=== PATIENT | male | born 1940 | race Caucasian/White ===

== ENCOUNTER 2017-04-29 15:21 | Observation (INO) | payer MEDICARE, BC ==
[2017-04-29] MEDS ORDERED: hydrALAZINE IV* 20 MG/ML VIAL IV ONE (16:12)
--- NOTE | 2017-04-29 16:47 | RAD ---
Indication: Hypertension, CHF. Single frontal view of the chest performed at 1621 hours was reviewed. Comparison is made with previous exam dated February 03, 2014. No mediastinal shift is noted. Patient is status post tracer thoracotomy. Lung ramirez demonstrate no pleural fluid, pneumonia or pneumothorax. IMPRESSION: POSTOPERATIVE CHANGES WITH NO EVIDENCE OF ACTIVE CARDIOPULMONARY DISEASE.
[2017-04-29 17:10] LABS: Hematocrit 45 % (42-52); Hemoglobin 15.1 g/dl (14.0-18.0); Mean Corpuscular HGB Conc 33 g/dl (31-36); Mean Corpuscular Hemoglobin 31 pg (27-31); Mean Corpuscular Volume 93 fL (80-94); Mean Platelet Volume 8 um3 (7.4-10.4); Red Blood Count 4.86 10^6/ul (4.0-5.4); Red Cell Distribution Width 14 % (10.5-15); White Blood Count 6.4 10^3/ul (3.5-10.8)
[2017-04-29 17:29] LABS: Albumin 3.5 g/dL (3.2-5.2); BUN/Creatinine Ratio 19.5 (8-20); Calcium 8.8 mg/dL (8.6-10.3); EGFR African American 67.6 (>60); EGFR Non-African American 52.6 (>60); Globulin 3.3 g/dL (2-4); Potassium 3.7 mmol/L (3.5-5.0); Total Bilirubin 0.7 mg/dL (0.2-1.0); Total Protein 6.8 g/dL (6.4-8.9)
[2017-04-29 18:05] LABS: TSH (Thyroid Stimulating Horm) 0.65 mcIU/mL (0.34-5.60)
[2017-04-29] MEDS ORDERED: hydrALAZINE IV* 20 MG/ML VIAL IV SLOW PU PRN (18:18)
[2017-04-29] MEDS: amLODIPine TAB* 5 MG PO SCH (19:27)
--- NOTE | 2017-04-29 19:32 | ED ---
Jose Enrique Kay Alfonso, scribed for Jesus Abreu MD on 04/29/17 at 1600 . Hypertension - HPI Summary HPI Summary: This patient is a 76 year old M BIBA to [facility] accompanied by with a chief complaint of high blood pressure noticed last night. He reports today when at his PCP his BP was 180/110. The patient rates the pain 0/10 in severity. 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 Symptoms alleviated by nothing. Patient denies CP, headache, and urinary symptoms. He reports missing doses of BID medication 3 nights ago. PMHx includes HTN, HLD, and CVA. - History of Current Complaint Chief Complaint: EDHypertension Stated Complaint: HIGH BLOOD PRESSURE Time Seen by Provider: 04/29/17 15:51 Hx Obtained From: Patient Onset/Duration: Started Days Ago - noticed last night, Still Present Timing: Constant, Lasting Days - noticed last night Reported Blood Pressure Prior To Arrival: 180/110 Aggravating Factor(s): Other: - Stress Alleviating Factor(s): Nothing Associated Signs & Symptoms: Negative Related Hx: Rx Non-Compliance - missing doses of BID medication 3 nights ago. - Allergies/Home Medications Allergies/Adverse Reactions: Allergies Allergy/AdvReac Type Severity Reaction Status Date / Time Enalapril [From Vasotec] Allergy Intermediate Swelling Verified 05/07/16 11:03 Of Face,Lips,& Throat Erythromycin Allergy Intermediate Nausea And Verified 05/07/16 11:03 Vomiting Home Medications: Home Medications Amoxicillin PO (*) [Amoxicillin 500 MG CAP*] 2,000 mg PO ONCE 04/29/17 [History Confirmed 04/29/17] Carvedilol TAB* [Coreg TAB*] 25 mg PO BID 04/29/17 [History Confirmed 04/29/17] [place]-3 Fatty Acids (Nf) [Fish Oil (NF)] 2,000 mg PO BID 04/29/17 [History Confirmed 04/29/17] PMH/Surg Hx/FS Hx/Imm Hx Endocrine/Hematology History: Reports: Hx Anemia Denies: Hx Anticoagulant Therapy, Hx Blood Disorders, Hx Blood Transfusions, Hx Bone Marrow Disease, Hx Diabetes, Hx Systemic Lupus Erythematosus, Hx Sickle Cell Disease, Hx Thyroid Disease, Hx Unexplained Bleeding, Other Endocrine/ Hematological Disorders Cardiovascular History: Reports: Hx Hypercholesterolemia, Hx Hypertension, Hx Pacemaker/ICD - pacemaker placed 01/2014, Hx Valvular Heart Disease - mitral valve replacement 01/2014 Denies: Hx Aneurysm, Hx Angina, Hx Angioplasty, Hx Auto Implanted Cardiovert Defib, Hx Cardiac Arrest, Hx Cardiomegaly, Hx Congenital Heart Disease, Hx Congestive Heart Failure, Hx Coronary Artery Disease, Hx Deep Vein Thrombosis, Hx Embolism, Hx Hypotension, Hx Peripheral Vascular Disease, Hx Rheumatic Fever , Hx Syncope, Other Cardiovascular Problems/Disorders Respiratory History: Reports: Other Respiratory Problems/Disorders - smoker 30 years Denies: Hx Asthma, Hx Chronic Bronchitis, Hx Chronic Obstructive Pulmonary Disease (COPD), Hx Cystic Fibrosis, Hx Lung Cancer, Hx Pleural Effusion, Hx Pneumonia, Hx Pulmonary Edema, Hx Pulmonary Embolism, Hx Seasonal Allergies, Hx Sleep Apnea GI History: Denies: Hx Cirrhosis, Hx Crohn's Disease, Hx Diverticulosis, Hx Gall Bladder Disease, Hx Gastroesophageal Reflux Disease, Hx Gastrointestinal Bleed, Hx Hiatal Hernia, Hx Irritable Bowel, Hx Jaundice, Hx Obstructive Bowel, Hx Ileostomy, Hx Pyloric Stenosis, Hx Ulcer, Other GI Disorders History: Reports: Hx Acute Renal Failure Denies: Hx Benign Prostatic Hyperplasia, Hx Chronic Renal Failure, Hx Dialysis, Hx Kidney Infection, Hx Kidney Stones, Other Problems/Disorders Musculoskeletal History: Reports: Other Musculoskeletal History - right wrist fx ~1999, broken ribs-no date Sensory History: Reports: Hx Contacts or Glasses Denies: Hx Cataracts, Hx Eye Injury, Hx Eye Prosthesis, Hx Glaucoma, Hx Legally Blind, Hx Macular Degeneration, Hx Vision Problem, Hx Deafness, Hx Hearing Aid, Hx Hearing Problem, Other Sensory Impairments Opthamlomology History: Reports: Hx Contacts or Glasses Denies: Hx Cataracts, Hx Eye Injury, Hx Eye Prosthesis, Hx Glaucoma, Hx Legally Blind, Hx Macular Degeneration, Hx Vision Problem, Other Sensory Impairments Neurological History: Reports: Hx CVA Denies: Hx Dementia, Hx Developmental Delay, Hx Headaches, Hx Migraine, Hx Nerve Disease, Hx Seizures, Hx Spinal Cord Injury, Hx Transient Ischemic Attacks (TIA), Other Neuro Impairments/Disorders Psychiatric History: Denies: Hx Anxiety, Hx Attention Deficit Hyperactivity Disorder, Hx Eating Disorder, Hx Depression, Hx Panic Disorder, Hx Post Traumatic Stress Disorder, Hx Inpatient Treatment, Hx Community Mental Health Tx, Hx Schizophrenia, Hx Bipolar Disorder, Hx Suicide Attempt, Hx of Violent Episodes Against Others, Hx Substance Abuse, Other Psychiatric Issues/Disorders - Cancer History Hx Chemotherapy: No Hx Radiation Therapy: No Hx Palliative Cancer Treatment: No - Surgical History Surgery Procedure, Year, and Place: trigger finger release . heart valve replacement 01/2014. pacer insertion 01/2014 [facility]x Anesthesia Reactions: No Infectious Disease History: Yes Infectious Disease History: Denies: Hx Clostridium Difficile, Hx Hepatitis, Hx Human Immunodeficiency Virus (HIV), Hx of Known/Suspected MRSA, Hx Tuberculosis, Hx Known/Suspected VRE , Hx Known/Suspected VRSA, History Other Infectious Disease, Traveled Outside the [place] in Last 30 Days - Family History Known Family History: Negative: Cardiac Disease - Social History Alcohol Use: Occasionally Alcohol Amount: 2 drinks per night Substance Use Type: Reports: None Smoking Status (MU): Former Smoker Type: Cigarettes Length of Time of Smoking/Using Tobacco: 30 years Have You Smoked in the Last Year: No Review of Systems Positive: Other - High blood pressure. Negative: Chest Pain Positive: no symptoms reported Negative: Headache All Other Systems Reviewed And Are Negative: Yes Physical Exam - Summary Physical Exam Summary: The patient is well-nourished in no acute distress and in no acute pain. The skin is warm and dry and skin color reflects adequate perfusion. HEENT: The head is normocephalic and atraumatic. The pupils are equal and reactive. The conjunctivae are clear and without drainage.~Nares are patent and without drainage.~Mouth reveals moist mucous membranes and the throat is without erythema and exudate. The external ears are intact. The ear canals are patent and without drainage. The tympanic membranes are intact. Neck is supple with full range of motion and non-tender. There are no carotid bruits. There is no neck vein distension. Respiratory: Chest is non-tender. Lungs are clear to auscultation and breath sounds are symmetrical and equal. Cardiovascular: Heart is regular rate and rhythm. There is no murmur or rub auscultated. Pulses are symmetrical and equal. Abdomen: The abdomen is soft and non-tender. There are normal bowel sounds heard in all four quadrants and there is no organomegaly palpated. Musculoskeletal: There is no back pain noted.~Extremities are non-tender with full range of motion. There is good capillary refill. There is pitting edema at bilateral LE which is greater on the right Neurological: Patient is alert and oriented to person, place and time. The patient has symmetrical motor strength in all four extremities. Cranial nerves are grossly intact. Deep tendon reflexes are symmetrical and equal in all four extremities. Psychiatric: The patient exhibits anxiety. Triage Information Reviewed: Yes Vital Signs On Initial Exam: Initial Vitals BP 144/78 04/29/17 15:31 Vital Signs Reviewed: Yes - Yelena Coma Scale Coma Scale Total: 15 Diagnostics - Vital Signs Vital Signs Temp Pulse Resp BP Pulse Ox 04/29/17 15:33 99.2 F 78 16 144/78 97 04/29/17 15:32 78 21 97 04/29/17 15:31 144/78 - Laboratory Lab Results: Lab Results 04/29/17 04/29/17 04/29/17 Range/Units 16:59 16:59 16:59 WBC 6.4 (3.5-10.8) 10^3/ul RBC 4.86 (4.0-5.4) 10^6/ul Hgb 15.1 (14.0-18.0) g/dl Hct 45 (42-52) % MCV 93 (80-94) fL MCH 31 (27-31) pg MCHC 33 (31-36) g/dl RDW 14 (10.5-15) % Plt Count 176 (150-450) 10^3/ul MPV 8 (7.4-10.4) um3 Neut % (Auto) 70.7 (38-83) % Lymph % (Auto) 16.0 L (25-47) % [place] % (Auto) 11.1 H (1-9) % Eos % (Auto) 1.7 (0-6) % Baso % (Auto) 0.5 (0-2) % Absolute Neuts (auto) 4.5 (1.5-7.7) 10^3/ul Absolute Lymphs (auto) 1.0 (1.0-4.8) 10^3/ul Absolute Monos (auto) 0.7 (0-0.8) 10^3/ul Absolute Eos (auto) 0.1 (0-0.6) 10^3/ul Absolute Basos (auto) 0 (0-0.2) 10^3/ul Absolute Nucleated RBC 0 10^3/ul Nucleated RBC % 0.1 INR (Anticoag Therapy) (0.89-1.11) Sodium 136 (133-145) mmol/L Potassium 3.7 (3.5-5.0) mmol/L Chloride 100 L (101-111) mmol/L Carbon Dioxide 25 (22-32) mmol/L Anion Gap 11 (2-11) mmol/L BUN 26 H (6-24) mg/dL Creatinine 1.33 H (0.67-1.17) mg/dL Est GFR ( Amer) 67.6 (>60) Est GFR (Non-Af Amer) 52.6 (>60) BUN/Creatinine Ratio 19.5 (8-20) Glucose 106 H (70-100) mg/dL Lactic Acid (0.5-2.0) mmol/L Calcium 8.8 (8.6-10.3) mg/dL Total Bilirubin 0.70 (0.2-1.0) mg/dL AST 26 (13-39) U/L ALT 22 (7-52) U/L Alkaline Phosphatase 59 (34-104) U/L Troponin I 0.00 (<0.04) ng/mL B-Natriuretic Peptide 91 ( - 100) pg/mL Total Protein 6.8 (6.4-8.9) g/dL Albumin 3.5 (3.2-5.2) g/dL Globulin 3.3 (2-4) g/dL Albumin/Globulin Ratio 1.1 (1-3) TSH 0.65 (0.34-5.60) mcIU/mL 04/29/17 04/29/17 Range/Units 16:59 16:59 WBC (3.5-10.8) 10^3/ul RBC (4.0-5.4) 10^6/ul Hgb (14.0-18.0) g/dl Hct (42-52) % MCV (80-94) fL MCH (27-31) pg MCHC (31-36) g/dl RDW (10.5-15) % Plt Count (150-450) 10^3/ul MPV (7.4-10.4) um3 Neut % (Auto) (38-83) % Lymph % (Auto) (25-47) % [place] % (Auto) (1-9) % Eos % (Auto) (0-6) % Baso % (Auto) (0-2) % Absolute Neuts (auto) (1.5-7.7) 10^3/ul Absolute Lymphs (auto) (1.0-4.8) 10^3/ul Absolute Monos (auto) (0-0.8) 10^3/ul Absolute Eos (auto) (0-0.6) 10^3/ul Absolute Basos (auto) (0-0.2) 10^3/ul Absolute Nucleated RBC 10^3/ul Nucleated RBC % INR (Anticoag Therapy) 0.86 L (0.89-1.11) Sodium (133-145) mmol/L Potassium (3.5-5.0) mmol/L Chloride (101-111) mmol/L Carbon Dioxide (22-32) mmol/L Anion Gap (2-11) mmol/L BUN (6-24) mg/dL Creatinine (0.67-1.17) mg/dL Est GFR ( Amer) (>60) Est GFR (Non-Af Amer) (>60) BUN/Creatinine Ratio (8-20) Glucose (70-100) mg/dL Lactic Acid 1.6 (0.5-2.0) mmol/L Calcium (8.6-10.3) mg/dL Total Bilirubin (0.2-1.0) mg/dL AST (13-39) U/L ALT (7-52) U/L Alkaline Phosphatase (34-104) U/L Troponin I (<0.04) ng/mL B-Natriuretic Peptide ( - 100) pg/mL Total Protein (6.4-8.9) g/dL Albumin (3.2-5.2) g/dL Globulin (2-4) g/dL Albumin/Globulin Ratio (1-3) TSH (0.34-5.60) mcIU/mL Result Diagrams: 04/29/17 16:59 04/29/17 16:59 Lab Statement: Any lab studies that have been ordered have been reviewed, and results considered in the medical decision making process. - Radiology CXR Radiology Interpretation Completed By: Radiologist - POSTOPERATIVE CHANGES WITH NO EVIDENCE OF ACTIVE CARDIOPULMONARY DISEASE. ED physician has reviewed this radiology report and agrees. Hypertension Course/Dx - Course Assessment/Plan: This patient is a 76 year old M BIBA to [facility] accompanied by with a chief complaint of high blood pressure noticed last night. He reports today when at his PCP his BP was 180/110. The patient rates the pain 0/ 10 in severity. 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 Symptoms alleviated by nothing. Patient denies CP, headache, and urinary symptoms. He reports missing doses of BID medication 3 nights ago. PMHx includes HTN, HLD, and CVA. CXR reveals POSTOPERATIVE CHANGES WITH NO EVIDENCE OF ACTIVE CARDIOPULMONARY DISEASE. ED physician has reviewed this radiology report and agrees. Consulted Dr. Denny (PCP) who feels the patient should be observed. Consulted Dr. Gentile (hospitalist) at 1647 who agrees to admit. The patient is agreeable with this plan. - Diagnoses Provider Diagnoses: Uncontrolled hypertension, Renal insufficiency - Physician Notifications Discussed Care Of Patient With: Hang Denny Time Discussed With Above Provider: 16:11 Instructed by Provider To: Other - Consulted Dr. Denny (PCP) who feels the patient should be observed. Consulted Dr. Gentile (hospitalist) at 1647 who agrees to admit. Discharge - Discharge Plan Condition: Stable Disposition: ADMITTED TO [facility] The documentation as recorded by the Jose Enrique greene Alfonso accurately reflects the service I personally performed and the decisions made by me, Jesus Abreu MD.
[2017-04-29] MEDS ORDERED: Atorvastatin* 40 MG TAB PO SCH (21:00)
[2017-04-29] MEDS: Carvedilol TAB* 25 MG PO SCH (21:43)
[2017-04-29] MEDS: Heparin VIAL(*) 5000 UNITS/ML VIAL (FIVE THOUSAND) SUBCUT SCH (21:43)
--- NOTE | 2017-04-29 21:48 | HP ---
CC: Dr. Denny * [facility] MEDICINE HISTORY AND PHYSICAL: DATE OF ADMISSION: 04/29/17 PRIMARY CARE PHYSICIAN: Dr. Denny. ATTENDING PHYSICIAN: Dr. David Gentile * (dictation provided by Monika Jarvis NP). CHIEF COMPLAINT: High blood pressure. HISTORY OF PRESENT ILLNESS: Mr. Orozco is a 76-year-old male with a past medical history of mitral valve replacement with a porcine valve as well as a pacemaker due to arrhythmia after that procedure, hypertension, hyperlipidemia, and a stroke with some residual left-sided numbness in his fingers and unsteady gait, who presents to the hospital today with concern for elevated blood pressure. Mr. Orozco states he has been in his normal state of health with no acute complaints. He went to see Dr. Denny last week for a routine followup yearly appointment where it was noted that his blood pressure was 162/106. There were no changes to the patient's medications at that time. 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 He confirms that this has made him quite anxious and stressed, which is unusual for him. Over the last couple of days, the patient has been more unsteady on his feet and has been using his cane more frequently per his 's report. Today, the patient stated to his that he felt his blood pressure was likely very high as he felt "not quite right" and unsteady. The patient went to the [facility] where his is a patient where they checked his blood pressure and found it to be 180/110. The patient is currently without a primary care physician as his prior physician, Dr. Garcia, is no longer practicing in [place]. The staff at the [facility] recommended that he come to the emergency room and he was transported via EMS. The patient denies any other complaints. He has no chest pain. No shortness of breath. No cough. No nausea, vomiting, diarrhea, or abdominal pain. He has been tolerating oral intake well. In the emergency room, Mr. Orozco was confirmed to have blood pressure elevated. On arrival, it was initially 144/78, but it has been as high as 185. His labs show that his BUN and creatinine are elevated from baseline at 1.33 and 26 respectively. PAST MEDICAL HISTORY: 1. 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 2. History of pacemaker for arrhythmia noted after mitral valve replacement. 3. Hypertension. 4. Hyperlipidemia. 5. History of stroke with residual left-sided numbness in his left fingers and unsteady gait. MEDICATIONS: 1. Amoxicillin 2000 mg p.o. as needed with dental procedures. 2. Multivitamins with minerals 1 tab p.o. daily. 3. [place]-3 fatty acid 2000 mg p.o. b.i.d. 4. Aspirin 81 mg p.o. daily. 5. Atorvastatin 40 mg p.o. at bedtime. 6. Carvedilol 25 mg p.o. b.i.d. 7. Furosemide 40 mg p.o. daily. ALLERGIES: ENALAPRIL and ERYTHROMYCIN. FAMILY HISTORY: The patient's mother had from a cerebral hemorrhage. His father related to liver cirrhosis. SOCIAL HISTORY: The patient is a former smoker, he quit about 20 years ago. He drinks still drinks about 2 drinks per night. He has no history of symptoms of withdrawal per his report. No history of drug use. He lives with his , who is the healthcare proxy. REVIEW OF SYSTEMS: A 14-point review of systems was completed with Mr. Orozco, and all those not mentioned above were negative. PHYSICAL EXAMINATION GENERAL: Mr. Orozco is lying in the bed, in no acute distress. His is at the bedside. VITAL SIGNS: On arrival, blood pressure 144/78, temperature 99.2, heart rate 78 , respiratory rate 16, O2 saturation 97% on room air. LUNGS: Clear to auscultation bilaterally with no accessory muscle use and good aeration. HEART: S1, S2. No murmur, rub, or gallop and regular. ABDOMEN: Soft, nontender with bowel sounds positive x4. EXTREMITIES: No cyanosis or edema. NEURO: He is alert. He is oriented x3. He moves all extremities equally. There is no facial asymmetry or focal weakness. Extraocular movements are intact. SKIN: Intact. DIAGNOSTIC STUDIES/LAB DATA: Sodium 136, potassium 3.7, chloride 100, serum bicarbonate 25, BUN 26, creatinine 1.33, glucose 106, lactic acid 1.6. TSH 0.65. WBC 6.4, hemoglobin 15.1, hematocrit 45, platelet count 176. INR 0.86. Chest x-ray shows no acute intrathoracic process. EKG is pending. ASSESSMENT AND PLAN: Mr. Orozco is a 76-year-old male with a past medical history of porcine mitral valve replacement, pacemaker, hypertension, hyperlipidemia and ischemic cerebrovascular accident, who presents to the hospital today with concern for hypertensive urgency. Our plans are for observation in the hospital for the followin. Hypertension: The patient reports that he was feeling unwell earlier today and describes it as "feeling not quite right." The patient's blood pressure has been better controlled in the emergency room. I questioned whether or not his high blood pressure is related to the level of stress he is under, which he and his make note. Regardless, his blood pressure is quite high and we will treat with amlodipine 5 mg added on to his carvedilol. Unfortunately, his BUN and creatinine are elevated today and I will be holding furosemide morning dose until that can be reassessed tomorrow. He will also have hydralazine p.r.n. 2. Hyperlipidemia: Continue atorvastatin. 3. DVT prophylaxis with heparin subcu. 4. Disposition to the telemetry floor. 5. Code status is full code. TIME SPENT: Approximately 60 minutes were spent on the admission of this patient, more than half the time was spent with the patient at bedside, reviewing the events leading up to this hospitalization, performing the physical examination, and reviewing the plan of care. MONIKA JARVIS NP [id number]/CPS #: [id number] [place]
[2017-04-30 01:25] LABS: Urine Bacteria Absent (Absent); Urine Bilirubin Negative (Negative); Urine Glucose Negative (Negative); Urine Nitrite Negative (Negative)
[2017-04-30] MEDS: Heparin VIAL(*) 5000 UNITS/ML VIAL (FIVE THOUSAND) SUBCUT SCH ×2 (05:52→14:03)
[2017-04-30 05:55] LABS: Calcium 8.3 mg/dL (8.6-10.3); EGFR African American 74.7 (>60); EGFR Non-African American 58.1 (>60); Potassium 3.1 mmol/L (3.5-5.0)
[2017-04-30] MEDS: Potassium Chlor TAB* 20 MEQ TAB.ER PO SCH ×2 (08:10→12:12)
[2017-04-30] MEDS: Carvedilol TAB* 25 MG PO SCH (08:11)
[2017-04-30] MEDS: amLODIPine TAB* 5 MG PO SCH (08:11)
[2017-04-30] MEDS ORDERED: Furosemide TAB* 20 MG PO SCH (09:00)
[2017-04-30] MEDS ORDERED: Aspirin EC Low Dose* 81 MG TAB.EC PO SCH (09:00)
--- NOTE | 2017-04-30 09:38 | PN ---
Subjective Date of Service: 04/30/17 Interval History: Patient seen and examined at bedside. Pt states that he is feeling well this morning. Denies fever, chills, shortness of breath, chest discomfort, N/V/D. Pt states that he takes his blood pressure medications as directed. Tele: Sinus rhythm, rate 70-80's. Family History: Unchanged from Admission Social History: Unchanged from Admission Past Medical History: Unchanged from Admission Objective Active Medications: Amlodipine Besylate (Norvasc Tab*) 5 mg PO DAILY [facility] Aspirin (Aspirin Ec Low Dose*) 81 mg PO DAILY [facility] Atorvastatin Calcium (Lipitor*) 40 mg PO BEDTIME [facility] Carvedilol (Coreg Tab*) 25 mg PO BID [facility] Heparin Sodium (Porcine) (Heparin Vial(*)) 5,000 units SUBCUT Q8HR [facility] Hydralazine HCl (Apresoline Iv*) 5 mg IV SLOW PU Q6H PRN Reason: SBP > 185 Potassium Chloride (Klor Con Er Tab*) 40 meq PO Q4H [facility] Stop: 04/30/17 12:01 Vital Signs 04/29/17 04/29/17 04/29/17 18:00 18:29 19:30 Temperature 98.3 F 98.6 F Pulse Rate 86 88 91 Respiratory 15 20 16 Rate Blood Pressure 185/89 170/87 173/85 (mmHg) O2 Sat by Pulse 97 97 98 Oximetry 04/29/17 04/30/17 04/30/17 23:24 03:50 07:15 Temperature 98.3 F 98.8 F 97.7 F Pulse Rate 83 78 76 Respiratory 20 16 16 Rate Blood Pressure 146/74 147/75 156/78 (mmHg) O2 Sat by Pulse 96 98 98 Oximetry Oxygen Devices in Use Now: None Appearance: NAD, laying in bed Eyes: PERRLA Ears/Nose/Mouth/Throat: Mucous Membranes Moist Respiratory: Symmetrical Chest Expansion and Respiratory Effort, Clear to Auscultation Cardiovascular: NL Sounds; No Murmurs; No JVD, RRR Abdominal: NL Sounds; No Tenderness; No Distention Extremities: No Edema Skin: No Rash or Ulcers Neurological: Alert and Oriented x 3, NL Muscle Strength and Tone Lines/Tubes/Other Access: Clean, Dry and Intact Peripheral IV - site benign Nutrition: Taking PO's Result Diagrams: 04/29/17 16:59 04/30/17 04:45 Additional Lab and Data: Assess/Plan/Problems-Billing Assessment: Ms. Orozco is a 76 yo male with PMH significant for MV insufficiency, s/p AVR, pacemaker, HLD, CVA, and HTN who presented to the emergency room for elevated blood pressure and was found to be hypertensive. - Patient Problems (1) Hypertensive urgency Code(s): I16.0 - HYPERTENSIVE URGENCY SNOMED Code(s): 587354326 Comment: - SBP 140-150's - Continue to hold furosemide - Continue amlodipine and Carvedilol (2) VINAY (acute kidney injury) Code(s): N17.9 - ACUTE KIDNEY FAILURE, UNSPECIFIED SNOMED Code(s): 13796411 Comment: - Baseline creatinine appears to be around 0.9-1.0 - Creatinine improved this morning - Continue to hold furosemide (3) HLD (hyperlipidemia) Code(s): E78.5 - HYPERLIPIDEMIA, UNSPECIFIED SNOMED Code(s): 40567281 Comment: - Continue atorvastatin (4) DVT prophylaxis Code(s): PSF0740 - SNOMED Code(s): 317514796 Comment: - Continue SQ Heparin (5) Full code status Code(s): Z78.9 - OTHER SPECIFIED HEALTH STATUS SNOMED Code(s): 521377066 Status and Disposition: OBV. Discharge to home when medically stable, possibly later today.
[2017-04-30 11:45] VITALS: BP 133/78
--- NOTE | 2017-05-01 07:04 | DS ---
CC: Dr. Joe Proctor; Dr. Denny * DISCHARGE SUMMARY: DATE OF ADMISSION: 04/29/17 DATE OF DISCHARGE: 04/30/17 ATTENDING PHYSICIAN: Dr. Fabrizio Sam * (dictated by Bonnie Chatterjee NP). PRIMARY CARE PROVIDER: Dr. Joe Proctor. PRIMARY DIAGNOSES: 1. Hypertensive urgency. 2. Hypokalemia. 3. Acute kidney injury. SECONDARY DIAGNOSES: 1. Mitral valve insufficiency. 2. Status post aortic valve replacement. 3. Hypertension. 4. Hyperlipidemia. 5. History of cerebrovascular accident with residual left-sided numbness, status post pacemaker placement. STUDIES WHILE IN THE HOSPITAL: Chest x-ray from 04/29/17. Radiologist's impression: Postoperative changes with no evidence of acute cardiopulmonary disease. DISCHARGE MEDICATIONS: New home medications: Amlodipine 5 mg oral daily. Continued home medications: 1. Fish oil 2000 mg oral twice daily. 2. Multivitamin 1 tablet oral daily. 3. Carvedilol 25 mg oral twice daily. 4. Atorvastatin 40 mg oral daily at bedtime. 5. Aspirin 81 mg oral daily. 6. Amoxicillin 2000 mg oral once prior to dental procedures. Medications to discuss with primary care provider: Furosemide. HISTORY OF PRESENT ILLNESS: Mr. Orozco is a 76-year-old male with past medical history significant for mitral valve replacement with a porcine valve, pacemaker placement due to arrhythmia, hypertension, hyperlipidemia, cerebro- vascular accident with residual left-sided numbness in his fingers and an unsteady gait, who presented to the emergency room with concerns of elevated blood pressure. Mr. Orozco states he had been in his normal state of health with no acute complaints. He was seen approximately a week ago by Dr. Denny on a routine followup appointment, where it was noted his blood pressures were hypertensive with a blood pressure of 162/106. There were no changes made in the patient's medications at this time. 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 The patient over the last couple of days had noted that he was more unsteady on his feet and using his cane more frequently. The patient felt that he was not feeling quite right and unsteady. They went to the [facility] where his is the patient and had his blood pressure checked, he was found to have a blood pressure of 180/110. The patient is currently without a primary care provider due to his previous primary care provider, Dr. Garcia, no longer providing care in the [place] area. The staff at the [facility] recommended that the patient present to the emergency room for further evaluation and he was transported by EMS. While in the emergency room, the patient had an initial blood pressure of 144/ 78 and his blood pressure as high as 180 systolic. He had labs showing his BUN and creatinine were elevated from his baseline at 26 and 1.33 respectively. The hospitalists were asked to evaluate the patient for admission. While in the hospital, the patient had his furosemide held due to his acute kidney injury and he was started on amlodipine. During his stay, his blood pressures were in the 130s to 170s systolic. His blood pressures were much improved after his morning blood pressure medications today. The patient denied any complaints today. He continued to have an elevated BUN and creatinine today, although improved from yesterday. The patient was also noted to be hypokalemic, received potassium replacement. Mr. Orozco was stable for discharge to home today. Vital signs are as follows, temperature 97.7, heart rate 73, respiratory rate 20, O2 sat 99% on room air, blood pressure 133/78. DISCHARGE PLAN: Mr. Orozco will be discharged to home. Activity as tolerated. He will be on a low-sodium, low-fat diet. The patient has been set up with a new primary care provider, Dr. Joe Proctor. He has an appointment on 05/14/17, 10:15 a.m. As far his hypertension, he has been started on amlodipine 5 mg oral daily and continued on his home carvedilol. The patient 's blood pressure should be followed closely as he may need to have his amlodipine further adjusted as an outpatient. As far as the patient's acute kidney injury, we have held his furosemide for now and recommend following the patient's BUN and creatinine. He has been asked to get repeat labs on Friday , 05/03/17, or 05/05/17, to make sure that his acute kidney injury has resolved. The patient has also been encouraged to keep his appointment with Dr. Denny's office to have his pacemaker checked on , 05/08/17. The patient has been asked to return to the emergency room for any chest pain or shortness of breath. This is a summarized report of a complex medical history and hospital stay. For further details, please see the entire medical record. TIME SPENT: Time for this discharge was approximately 50 minutes, greater than half of that was spent [id number] with the patient discussing discharge plans and instructions. CONDITION ON DISCHARGE: Stable. Reviewed by FELIPE GOODMAN 05/04/17 2113 [id number]/[facility] #: [id number] SATURN[place]
== END 2017-04-30 15:15 | disposition home or self-care (01) ==
LOC: ED 15:21 → MEDTELE 17:34
PROVIDERS: ADMIT Internal Medicine; ATTEND Internal Medicine
DX: I16.0 Hypertensive urgency (principal); E87.6 Hypokalemia; Z79.899 Other long term (current) drug therapy; E78.5 Hyperlipidemia, unspecified; Z79.82 Long term (current) use of aspirin; Z95.0 Presence of cardiac pacemaker; Z95.2 Presence of prosthetic heart valve; N17.9 Acute kidney failure, unspecified; I69.354 Hemiplegia and hemiparesis following cerebral infarction affecting left non-dominant side
CPT/HCPCS: 36415; 71010; 80048; 80053; 81003; 81015; 83605; 83880; 84443; 84484; 85025; 85610; 96374; 99284; A9270-GY; G0378; J0360; J1644

== ENCOUNTER 2017-05-07 18:14 | Inpatient (IN) | payer MEDICARE, OTHER ==
[2017-05-07] MEDS ORDERED: Furosemide IV* 10 MG/ML VIAL (40 MG) IV ONE ×2 (19:06→20:34)
--- NOTE | 2017-05-07 19:49 | RAD ---
Indication: Sudden onset shortness of breath. Comparison: April 29, 2017 Technique: Upright AP 1900 hours Report: Median sternotomy wires. RIGHT atrial and RIGHT ventricular level pacemaker leads are unchanged. Upper normal heart size. Prominent ill-defined central pulmonary vasculature and diffuse prominence of the interstitial markings with thickened peripheral intralobular septa. Grossly clear pleural spaces. Negative for pneumothorax. IMPRESSION: Alveolar and interstitial pulmonary edema.
[2017-05-07 19:50] LABS: C Reactive Protein 13.99 mg/L (< 5.00)
[2017-05-07] MEDS ORDERED: Nitroglycerin 0.4 MG/HR PATCH* (10 MG) TRANSDERM ONE (19:57)
[2017-05-07 19:59] LABS: Hematocrit 51 % (42-52); Hemoglobin 16.4 g/dl (14.0-18.0); Mean Corpuscular HGB Conc 33 g/dl (31-36); Mean Corpuscular Hemoglobin 31 pg (27-31); Mean Corpuscular Volume 95 fL (80-94); Mean Platelet Volume 9 um3 (7.4-10.4); Red Blood Count 5.33 10^6/ul (4.0-5.4); Red Cell Distribution Width 14 % (10.5-15); White Blood Count 12.1 10^3/ul (3.5-10.8)
[2017-05-07 20:33] LABS: Albumin 3.7 g/dL (3.2-5.2); Calcium 9.3 mg/dL (8.6-10.3); EGFR Non-African American 66.8 (>60); Globulin 3.9 g/dL (2-4); Potassium 4.6 mmol/L (3.5-5.0); Total Bilirubin 0.9 mg/dL (0.2-1.0); Total Protein 7.6 g/dL (6.4-8.9)
[2017-05-07 20:34] LABS: Troponin I 0.01 ng/mL (<0.04)
[2017-05-07] MEDS ORDERED: Acetaminophen TAB* 325 MG PO PRN (20:34)
[2017-05-07] MEDS ORDERED: Nitroglycerin 2% OINT* 1 GM PAK ONE (20:46)
[2017-05-07] MEDS: Nitroglycerin 2% OINT* 1 GM PAK TOPICAL SCH (20:47)
[2017-05-07] MEDS ORDERED: Iohexol 350* (CONTRAST) 500 ML MDV IV ONE (21:02)
--- NOTE | 2017-05-07 21:49 | RAD ---
INDICATION: Sudden onset dyspnea. Expiratory wheezing and lower lobe bronchial. Lower extremity pitting edema. Question CHF and PE. COMPARISON: Chest radiograph of the same date TECHNIQUE: Multidetector CT images were obtained from the lung apices to the upper abdomen with 78 mL Omnipaque 350 IV contrast. Pulmonary angiogram protocol. Multiplanar reformation including with maximum intensity projection. REPORT: Small bilateral dependent pleural effusions with proportional atelectasis. Prominent interstitial markings with peripheral thickened intralobular septa. Mild bilateral central mid to lower lung zone alveolar consolidation most suspicious for alveolar edema. Negative for pneumothorax. Negative for thoracic lymphadenopathy. Median sternotomy wires. Upper normal heart size. Prosthetic mitral valve. RIGHT atrial and RIGHT ventricular level pacemaker leads. Negative for pericardial effusion. Normal diameter thoracic aorta with only mild atherosclerotic plaque. Respiratory motion artifact moderately limits the CT pulmonary angiogram. Nonetheless there are no compelling filling defects within the main through the segmental and where visible the subsegmental pulmonary arteries to indicate pulmonary embolus. Images through the upper abdomen are remarkable for mild passive congestion of the liver. Negative for suspicious osseous lesions. IMPRESSION: 1. Mild alveolar and interstitial pulmonary edema with associated small pleural effusions. 2. Moderately limited CT pulmonary and limited due to motion artifact without compelling evidence for pulmonary embolism.
[2017-05-07] MEDS: Atorvastatin* 40 MG TAB PO SCH (21:50)
[2017-05-07] MEDS: Heparin VIAL(*) 5000 UNITS/ML VIAL (FIVE THOUSAND) SUBCUT SCH (21:57)
--- NOTE | 2017-05-07 22:58 | ED ---
Marty Kay Benjamin, scribed for Sanju Salgado MD on 05/07/17 at 1908 . Shortness of Breath - HPI Summary HPI Summary: 76yo male with sudden onset of dyspnea. Pt is in labored breathing and states that he never had breathing problems in the past. Pt had mitral valve replacement at 2013 and is recently been taken off Lasix. Pt is a former smoker and has hx of COPD. Pt is wheezing and presents bilateral leg swelling. - History of Current Complaint Chief Complaint: EDShortnessOfBreath Time Seen by Provider: 05/07/17 18:46 Hx Obtained From: Patient Onset/Duration: Sudden Onset, Lasting Hours, Still Present Timing: Constant Current Severity: Moderate Dyspnea At: Rest Aggrevating Factors: Nothing Alleviating Factors: Bronchodilators, EMS Tx, Oxygen Associated Signs & Symptoms: Wheezing - Allergy/Home Medications Allergies/Adverse Reactions: Allergies Allergy/AdvReac Type Severity Reaction Status Date / Time Enalapril [From Vasotec] Allergy Intermediate Swelling Verified 05/07/16 11:03 Of Face,Lips,& Throat Erythromycin Allergy Intermediate Nausea And Verified 05/07/16 11:03 Vomiting PMH/Surg Hx/FS Hx/Imm Hx Endocrine/Hematology History: Reports: Hx Anemia Denies: Hx Anticoagulant Therapy, Hx Blood Disorders, Hx Blood Transfusions, Hx Bone Marrow Disease, Hx Diabetes, Hx Systemic Lupus Erythematosus, Hx Sickle Cell Disease, Hx Thyroid Disease, Hx Unexplained Bleeding, Other Endocrine/ Hematological Disorders Cardiovascular History: Reports: Hx Hypercholesterolemia, Hx Hypertension, Hx Pacemaker/ICD - pacemaker placed 01/2014, Hx Valvular Heart Disease - mitral valve replacement 01/2014 Denies: Hx Aneurysm, Hx Angina, Hx Angioplasty, Hx Auto Implanted Cardiovert Defib, Hx Cardiac Arrest, Hx Cardiomegaly, Hx Congenital Heart Disease, Hx Congestive Heart Failure, Hx Coronary Artery Disease, Hx Deep Vein Thrombosis, Hx Embolism, Hx Hypotension, Hx Peripheral Vascular Disease, Hx Rheumatic Fever , Hx Syncope, Other Cardiovascular Problems/Disorders Respiratory History: Reports: Other Respiratory Problems/Disorders - smoker 30 years Denies: Hx Asthma, Hx Chronic Bronchitis, Hx Chronic Obstructive Pulmonary Disease (COPD), Hx Cystic Fibrosis, Hx Lung Cancer, Hx Pleural Effusion, Hx Pneumonia, Hx Pulmonary Edema, Hx Pulmonary Embolism, Hx Seasonal Allergies, Hx Sleep Apnea GI History: Denies: Hx Cirrhosis, Hx Crohn's Disease, Hx Diverticulosis, Hx Gall Bladder Disease, Hx Gastroesophageal Reflux Disease, Hx Gastrointestinal Bleed, Hx Hiatal Hernia, Hx Irritable Bowel, Hx Jaundice, Hx Obstructive Bowel, Hx Ileostomy, Hx Pyloric Stenosis, Hx Ulcer, Other GI Disorders History: Denies: Hx Acute Renal Failure, Hx Benign Prostatic Hyperplasia, Hx Chronic Renal Failure, Hx Dialysis, Hx Kidney Infection, Hx Kidney Stones, Other Problems/Disorders Musculoskeletal History: Reports: Other Musculoskeletal History - right wrist fx ~1999, broken ribs-no date Sensory History: Reports: Hx Contacts or Glasses Denies: Hx Cataracts, Hx Eye Injury, Hx Eye Prosthesis, Hx Glaucoma, Hx Legally Blind, Hx Macular Degeneration, Hx Vision Problem, Hx Deafness, Hx Hearing Aid, Hx Hearing Problem, Other Sensory Impairments Opthamlomology History: Reports: Hx Contacts or Glasses Denies: Hx Cataracts, Hx Eye Injury, Hx Eye Prosthesis, Hx Glaucoma, Hx Legally Blind, Hx Macular Degeneration, Hx Vision Problem, Other Sensory Impairments Neurological History: Reports: Hx CVA Denies: Hx Dementia, Hx Developmental Delay, Hx Headaches, Hx Migraine, Hx Nerve Disease, Hx Seizures, Hx Spinal Cord Injury, Hx Transient Ischemic Attacks (TIA), Other Neuro Impairments/Disorders Psychiatric History: Denies: Hx Anxiety, Hx Attention Deficit Hyperactivity Disorder, Hx Eating Disorder, Hx Depression, Hx Panic Disorder, Hx Post Traumatic Stress Disorder, Hx Inpatient Treatment, Hx Community Mental Health Tx, Hx Schizophrenia, Hx Bipolar Disorder, Hx Suicide Attempt, Hx of Violent Episodes Against Others, Hx Substance Abuse, Other Psychiatric Issues/Disorders - Cancer History Hx Chemotherapy: No Hx Radiation Therapy: No Hx Palliative Cancer Treatment: No - Surgical History Surgery Procedure, Year, and Place: trigger finger release . heart valve replacement 01/2014. pacer insertion 01/2014 [facility] Hx Anesthesia Reactions: No Infectious Disease History: No Infectious Disease History: Denies: Hx Clostridium Difficile, Hx Hepatitis, Hx Human Immunodeficiency Virus (HIV), Hx of Known/Suspected MRSA, Hx Tuberculosis, Hx Known/Suspected VRE , Hx Known/Suspected VRSA, History Other Infectious Disease, Traveled Outside the [place] in Last 30 Days - Family History Known Family History: Negative: Cardiac Disease - Social History Alcohol Use: Occasionally Alcohol Amount: 2 drinks per night Substance Use Type: Reports: None Smoking Status (MU): Former Smoker Type: Cigarettes Length of Time of Smoking/Using Tobacco: 30 years Have You Smoked in the Last Year: No Review of Systems Constitutional: Negative Eyes: Negative ENT: Negative Cardiovascular: Negative Positive: Shortness Of Breath Gastrointestinal: Negative Genitourinary: Negative Positive: Edema - legs Skin: Negative Neurological: Negative Psychological: Normal All Other Systems Reviewed And Are Negative: Yes Physical Exam Triage Information Reviewed: Yes Vital Signs On Initial Exam: Initial Vitals Temp Pulse Resp BP Pulse Ox 97.2 F 93 36 174/93 92 05/07/17 18:21 05/07/17 18:21 05/07/17 18:21 05/07/17 18:21 05/07/17 18:21 Vital Signs Reviewed: Yes Head/Face: Positive: Normal Head/Face Inspection Eyes: Positive: EOMI, DB ENT: Positive: Normal ENT inspection, Hearing grossly normal Neck: Positive: Supple, Nontender Respiratory/Lung Sounds: Positive: Other - poor air movement; crackles Cardiovascular: Positive: RRR, Pulses are Symmetrical in both Upper and Lower Extremities Abdomen Description: Positive: Nontender, Soft Bowel Sounds: Positive: Present Musculoskeletal: Positive: Normal, Strength/ROM Intact Neurological: Positive: Sensory/Motor Intact, Alert, Oriented to Person Place, Time Psychiatric: Positive: Affect/Mood Appropriate - Yelena Coma Scale Coma Scale Total: 15 Diagnostics - Vital Signs Vital Signs Temp Pulse Resp BP Pulse Ox 05/07/17 18:28 94 26 92 05/07/17 18:27 98.0 F 94 24 161/112 92 05/07/17 18:21 97.2 F 93 36 174/93 92 - Laboratory Lab Results: Lab Results 05/07/17 05/07/17 05/07/17 Range/Units 19:23 19:23 19:23 WBC 12.1 H (3.5-10.8) 10^3/ul RBC 5.33 (4.0-5.4) 10^6/ul Hgb 16.4 (14.0-18.0) g/dl Hct 51 (42-52) % MCV 95 H (80-94) fL MCH 31 (27-31) pg MCHC 33 (31-36) g/dl RDW 14 (10.5-15) % Plt Count 157 (150-450) 10^3/ul MPV 9 (7.4-10.4) um3 Neut % (Auto) 85.5 H (38-83) % Lymph % (Auto) 4.7 L (25-47) % [place] % (Auto) 8.4 (1-9) % Eos % (Auto) 0.9 (0-6) % Baso % (Auto) 0.5 (0-2) % Absolute Neuts (auto) 10.4 H (1.5-7.7) 10^3/ul Absolute Lymphs (auto) 0.6 L (1.0-4.8) 10^3/ul Absolute Monos (auto) 1.0 H (0-0.8) 10^3/ul Absolute Eos (auto) 0.1 (0-0.6) 10^3/ul Absolute Basos (auto) 0.1 (0-0.2) 10^3/ul Absolute Nucleated RBC 0 10^3/ul Nucleated RBC % 0 INR (Anticoag Therapy) 0.85 L (0.89-1.11) D-Dimer, Quantitative 857 H (Less Than 230) ng/mL Sodium 135 (133-145) mmol/L Potassium 4.6 (3.5-5.0) mmol/L Chloride 104 (101-111) mmol/L Carbon Dioxide 22 (22-32) mmol/L Anion Gap 9 (2-11) mmol/L BUN 27 H (6-24) mg/dL Creatinine 1.08 (0.67-1.17) mg/dL Est GFR ( Amer) 86.0 (>60) Est GFR (Non-Af Amer) 66.8 (>60) BUN/Creatinine Ratio 25.0 H (8-20) Glucose 103 H (70-100) mg/dL Lactic Acid (0.5-2.0) mmol/L Calcium 9.3 (8.6-10.3) mg/dL Total Bilirubin 0.90 (0.2-1.0) mg/dL AST 30 (13-39) U/L ALT 20 (7-52) U/L Alkaline Phosphatase 64 (34-104) U/L Troponin I 0.01 (<0.04) ng/mL C-Reactive Protein 13.99 H (< 5.00) mg/L B-Natriuretic Peptide ( - 100) pg/mL Total Protein 7.6 (6.4-8.9) g/dL Albumin 3.7 (3.2-5.2) g/dL Globulin 3.9 (2-4) g/dL Albumin/Globulin Ratio 0.9 L (1-3) 05/07/17 05/07/17 Range/Units 19:23 19:23 WBC (3.5-10.8) 10^3/ul RBC (4.0-5.4) 10^6/ul Hgb (14.0-18.0) g/dl Hct (42-52) % MCV (80-94) fL MCH (27-31) pg MCHC (31-36) g/dl RDW (10.5-15) % Plt Count (150-450) 10^3/ul MPV (7.4-10.4) um3 Neut % (Auto) (38-83) % Lymph % (Auto) (25-47) % [place] % (Auto) (1-9) % Eos % (Auto) (0-6) % Baso % (Auto) (0-2) % Absolute Neuts (auto) (1.5-7.7) 10^3/ul Absolute Lymphs (auto) (1.0-4.8) 10^3/ul Absolute Monos (auto) (0-0.8) 10^3/ul Absolute Eos (auto) (0-0.6) 10^3/ul Absolute Basos (auto) (0-0.2) 10^3/ul Absolute Nucleated RBC 10^3/ul Nucleated RBC % INR (Anticoag Therapy) (0.89-1.11) D-Dimer, Quantitative (Less Than 230) ng/mL Sodium (133-145) mmol/L Potassium (3.5-5.0) mmol/L Chloride (101-111) mmol/L Carbon Dioxide (22-32) mmol/L Anion Gap (2-11) mmol/L BUN (6-24) mg/dL Creatinine (0.67-1.17) mg/dL Est GFR ( Amer) (>60) Est GFR (Non-Af Amer) (>60) BUN/Creatinine Ratio (8-20) Glucose (70-100) mg/dL Lactic Acid 0.9 (0.5-2.0) mmol/L Calcium (8.6-10.3) mg/dL Total Bilirubin (0.2-1.0) mg/dL AST (13-39) U/L ALT (7-52) U/L Alkaline Phosphatase (34-104) U/L Troponin I (<0.04) ng/mL C-Reactive Protein (< 5.00) mg/L B-Natriuretic Peptide 564 H ( - 100) pg/mL Total Protein (6.4-8.9) g/dL Albumin (3.2-5.2) g/dL Globulin (2-4) g/dL Albumin/Globulin Ratio (1-3) Result Diagrams: 05/07/17 19:23 05/07/17 19:23 Lab Statement: Any lab studies that have been ordered have been reviewed, and results considered in the medical decision making process. - Radiology CXR Xray Interpretation: Positive (See Comments) - IMPRESSION: Alveolar and interstitial pulmonary edema. Radiology Interpretation Completed By: Radiologist - ED physician has reviewed this radiology report and agrees. - EKG 1851. Cardiac Rate: NL - 98bpm EKG Rhythm: Sinus Rhythm Course/Dx - Course Course Of Treatment: Reviewed pts medication and allergy lists. Blood pressure noted. Discussed with Alen Sanchez SPRAY I PAINTER (Hospitalist) at 1906. CXR SHOWS CHF. LASIX 40MG IV GIVEN. NTG PATCH STARTED. BIPAP STARTED. ADMITTED BY HOSPITALIST TO ICU. CTA PENDING AT ADMISSION. - Diagnoses Provider Diagnoses: Dyspnea, Hypoxia, CHF (congestive heart failure) - Critical Care Time Critical Care Time: 30-74 min Discharge - Discharge Plan Condition: Guarded Disposition: ADMITTED TO [facility] documentation as recorded by the Marty greene Benjamin accurately reflects the service I personally performed and the decisions made by me, Sanju Salgado MD.
--- NOTE | 2017-05-08 00:52 | HP ---
CC: Dr. Delgado * HISTORY AND PHYSICAL: DATE OF ADMISSION: 05/07/17 PRIMARY CARE PROVIDER: Dr. Delgado. ATTENDING PHYSICIAN WHILE IN THE HOSPITAL: Dr. Fabrizio Sam * (report dictated by Alen Sanchez NP). CHIEF COMPLAINT: Shortness of breath. HISTORY OF PRESENTING ILLNESS: Mr. Orozco is a 76-year-old male patient who has a history of mitral regurgitation, status post porcine valve replacement and he has a history of CVA and he has a history of hypertension and hyperlipidemia. He comes into the ER today, says around 5 o'clock, he had sudden onset of shortness of breath while walking to the bathroom. He says he has been off his Lasix since being discharged last week. He says he has not noticed any weight gain or worsening swelling. There has been no recent trips or travel. No unilateral leg pain. No recent surgery. He says that he has not had been having any chest pain. He says that last night he slept well. He denied having any orthopnea. He denied having any notable swelling. He said that he has not had progression of shortness of breath. There has not been any fevers. There has not been any chills or cough. It just was a sudden onset today. He came into the ED. He noticed on his wrist watch that his heart was really fast. This was also concerning to him too. PAST MEDICAL HISTORY: Significant for: 1. Mitral regurgitation. 2. Hypertension. 3. Hyperlipidemia. 4. CVA with residual left-sided weakness. PAST SURGICAL HISTORY: He has had a mitral valve replacement that is porcine with a history of pacemaker. HOME MEDICATIONS: According to the list that we were able to obtain include: 1. Amlodipine 5 mg daily. 2. [place]-3 fatty acid 1000 mg p.o. b.i.d. 3. Multivitamin 1 tablet p.o. daily. 4. Lasix, notes that we have 60 mg a day, this was recently stopped about a week. 5. He is on Coreg 25 mg p.o. b.i.d. 6. Lipitor 40 mg daily. 7. Aspirin 81 mg daily. 9. Amoxicillin 2000 mg p.o. before dental work. ALLERGIES TO MEDICATIONS: Include VASOTEC and ERYTHROMYCIN. FAMILY HISTORY: Mother had a history of intracranial hemorrhage. Father had cirrhosis. SOCIAL HISTORY: He is a former smoker. He does drink 2 drinks a night. Surrogate decision maker is his . REVIEW OF SYSTEMS: There is no documented fever. He denied having any significant weight change. There was no double vision. He denies having any ear discharge. There is no rhinorrhea. No sore throat. No thyroid enlargement. Denies having any chest pain. There was dyspnea on exertion and shortness of breath, but no orthopnea. No nocturnal dyspnea. No abdominal pain. No nausea. No vomiting. No dysuria. No frequency. No loss of consciousness. No pruritus and no skin ulcerations. Review of 14 systems completed, all others negative. PHYSICAL EXAMINATION GENERAL: At this time, Mr. Orozco is a 76-year-old male patient, appears well nourished, well-developed. He appears to be in a [id number] amount of respiratory distress. VITAL SIGNS: Blood pressure 170/97 with a pulse of 105, respirations were 30, O2 sat was 95%, temperature was 98. HEENT: Head is atraumatic and normocephalic. Eyes: EOMs are intact. Sclerae were anicteric and not pale. Throat: Oral mucosa appears to be moist. No oropharyngeal erythema. NECK: Supple. LUNGS: Diminished in the bases. He had crackles bilaterally. HEART: Sounds S1, S2. Irregularly irregular rate and rhythm. No murmurs, rubs , or gallops. ABDOMEN: Soft, flat, nontender. Bowel sounds were present. EXTREMITIES: Pulses were 2+ throughout. He had +2 pitting edema bilaterally. He had 5/5 strength. NEUROLOGICAL: He is awake, he is alert, and oriented x3. No gross focal deficits. SKIN: Intact. LABORATORY DATA/DIAGNOSTIC STUDIES: WBC 12.1, RBC of 5.33, hemoglobin of 16.4 , hematocrit 51, and platelet count of 157. His INR was 0.85. D-dimer was 857. He had a sodium of 135, potassium 4.6, chloride of 104, bicarb 22, BUN 27 , creatinine 1.08, glucose of 103, lactic 0.9, calcium 9.3, total bili 0.9. AST 30, ALT 20, alk phos 54. Troponin 0.01. BNP is 564. Albumin was 3.7. He had a chest x-ray today. Under my review, chest x-ray did show bilateral pulmonary edema. Radiology read this as alveolar interstitial pulmonary edema. He had an EKG, which showed sinus rhythm with a rate of 98, no ST elevation or T -wave inversions. It was reviewed to the previous EKG, it appears to be similar , rate is faster now. Old medical records were reviewed. His last EF was 60% to 65%. ASSESSMENT AND PLAN: Mr. Orozco is a 76-year-old male patient coming into the ER today with complaints of shortness of breath of sudden onset. On evaluation here in the ED, there was concern for congestive heart failure. He will be admitted under inpatient status for: 1. Shortness of breath. Etiology is unclear, certainly this could be a flash pulmonary edema, could be a pulmonary embolism, sudden onset, recent hospitalization. My plan is to get a CTA of the chest. I am going to put him on BiPAP, give him nitro, Lasix, and may have to give him some morphine and we will continue to follow him. 2. Presumed atrial fibrillation. In the ED, while dictating, it was noted that his heart rate has been going into 140s to 170s at times. I am going to get an EKG now. If this is atrial fibrillation, we are going to anticoagulate him. In addition of this, we will put him on diltiazem. His EF was preserved. 3. History of mitral valve regurgitation. It appears to be stable at this point. We will continue to monitor. 4. Hypertension. Continue meds as prescribed. 5. Hyperlipidemia. Continue his statin therapy. 6. History of cerebrovascular accident. Continue with secondary prevention. 7. DVT prophylaxis. I am going to give him therapeutic Lovenox. 8. Code status. He is a full code. 9. Fluids, electrolytes, and nutrition. He is n.p.o. because he is on BiPAP. TIME SPENT: Time spent on the admission was approximately 60 minutes with greater than half the time spent [id number] with the patient obtaining my history and physical, other half time was spent going over the plan of care with the patient and implementing plan of care. I did discuss the plan of care with my attending physician, Dr. Sam, he is in agreement. ALEN SANCHEZ, OLVIN [id number]/[facility] #: [id number] [place]
[2017-05-08] MEDS: Nitroglycerin 2% OINT* 1 GM PAK TOPICAL SCH ×3 (03:31→16:28)
[2017-05-08 05:48] LABS: Hematocrit 42 % (42-52); Mean Corpuscular HGB Conc 33 g/dl (31-36); Mean Corpuscular Hemoglobin 32 pg (27-31); Mean Corpuscular Volume 95 fL (80-94); Mean Platelet Volume 9 um3 (7.4-10.4); Red Blood Count 4.45 10^6/ul (4.0-5.4); Red Cell Distribution Width 15 % (10.5-15); White Blood Count 8.2 10^3/ul (3.5-10.8)
[2017-05-08] MEDS ORDERED: Nitro Patch/OINT Remove PATCH OFF SCH (06:00)
[2017-05-08 06:03] LABS: BUN/Creatinine Ratio 21.2 (8-20); Blood Urea Nitrogen 25 mg/dL (6-24); CO2 Carbon Dioxide 21 mmol/L (22-32); Calcium 8.4 mg/dL (8.6-10.3); Chloride 104 mmol/L (101-111); EGFR African American 77.6 (>60); EGFR Non-African American 60.3 (>60); Glucose 99 mg/dL (70-100); Sodium 137 mmol/L (133-145)
[2017-05-08 06:13] LABS: Anion Gap 12 mmol/L (2-11)
[2017-05-08] MEDS: Heparin VIAL(*) 5000 UNITS/ML VIAL (FIVE THOUSAND) SUBCUT SCH ×3 (07:04→21:14)
[2017-05-08] MEDS: Aspirin EC Low Dose* 81 MG TAB.EC PO SCH (08:58)
[2017-05-08] MEDS: amLODIPine TAB* 5 MG PO SCH (08:58)
--- NOTE | 2017-05-08 11:39 | ECHO ---
Amended Report Patient: RADHA AKBAR [facility] Rec#: [id number] : 1940 Date: 05/08/2017 Age: 76y Height: 180.34 cm / 71.0 in Weight: 92.08 kg / 202.9 lbs Sex: M BSA: 2.12 Room#: ICU 11 Admit Date#: 05/07/2017 Type: Inpatient Referring: Alen Sanchez NP Reading: Danie Gimenez MD Equipment Superintendent: Lolly Murphy RDCS,RDMS CC: Hang Denny MD Transthoracic Echocardiogram Indication: CHF, PE BP: 96/69 HR: 92 Rhythm: NSR Findings History: MV replacement, HTN, HLD, CVA Technical Comments: The study is technically limited due to poor acoustic windows. Completed 1045 Left Ventricle: The left ventricular chamber size is normal. Mild concentric left ventricular hypertrophy is observed. The left ventricle appears hyperdynamic. The estimated ejection fraction is greater than 65%. The assessment of diastolic function is non-diagnostic. Left Atrium: The left atrium is mild to moderately dilated. Right Ventricle: The right ventricular chamber size and systolic function are within normal limits. The right ventricle wall thickness is mildly increased. Right Atrium: The right atrium is mildly dilated. Aortic Valve: The aortic valve is trileaflet. The aortic valve leaflets are mildly thickened. There is no evidence of aortic regurgitation. Mitral Valve: The mitral valve structure is not well visualized.In multiple views the strut seem to abut the interventricular septum. There is no evidence of mitral regurgitation. The mean gradient across the mitral valve is 22 mmHg. The mitral valve area, by pressure half time, is calculated at 1.1 cm2. A bioprosthetic mitral valve is present. Tricuspid Valve: The tricuspid valve leaflets are normal. There is mild to moderate tricuspid regurgitation. There is evidence of severe pulmonary hypertension. Pulmonic Valve: The pulmonic valve appears normal. There is a trace pulmonic regurgitation. Pericardium: There is no significant pericardial effusion. Aorta: The aortic root appears normal. The aortic arch is not well visualized. Pulmonary Artery: The main pulmonary artery appears normal. Venous: The inferior vena cava appears normal. There is a greater than 50% respiratory change in the inferior vena cava dimension. Conclusions Poor quality parasternal and apical windows for review. Mild concentric left ventricular hypertrophy is observed. The left ventricle appears hyperdynamic. The estimated ejection fraction is greater than 65%. The left atrium is mild to moderately dilated. The bioprosthetic mitral valve structure is not well visualized. In multiple views the strut seem to abut the interventricular septum. The mean gradient across the mitral valve is 22 mmHg Calculated valve area suggest severe sternosis , however hyperdynamic state may falsely suggest stenosis. There is mild to moderate tricuspid regurgitation. There is evidence of severe pulmonary hypertension. There is a trace pulmonic regurgitation. Compared to report of study from 11/21/2016 there is a significant gradient across the mitral valve that was not commented on in the prior study. The tricuspid regurgitation is more (was trace) and the pulmonary artery pressure is markedly increased (RVSP was reported as 27 mmhg). Consider KATE to evaluate prosthetic valve function. Measurements Name Value Normal Range RVIDd (AP) 2D 2.7 cm (0.9 - 2.6) RVDdMajor (2D) 4.2 cm (2.2 - 4.4) RAd ISD 4CH 4.8 cm (3.4 - 4.9) RA (A4C)W 5.5 cm (2.9 - 4.6) IVSd (2D) 1.1 cm (0.6 - 1) LVPWd (2D) 1.2 cm (0.6 - 1) LVIDd (2D) 4.6 cm (3.6 - 5.4) LVIDs (2D) 2.7 cm - LV FS (2D) 42 % (25 - 45) Aortic Annulus 2 cm (1.4 - 2.6) Ao root diameter (2D) 3.2 cm (2.1 - 3.5) Ascending Ao 3.2 cm (2.1 - 3.4) LA dimension (AP) 2D 4.8 cm (2.3 - 3.8) LAd ISD 4CH 5.9 cm (2.9 - 5.3) LA ISD 4CH W 5.9 cm (2.5 - 4.5) Name Value Normal Range MV E-wave Vmax 1.4 m/sec - MV deceleration time 207 msec - MV A-wave Vmax 1.7 m/sec - MV E:A ratio 0.8 ratio - LV lateral e' Vmax 0.04 m/sec - LV E:e' lateral ratio 35 ratio - Name Value Normal Range AV Vmax 3.1 m/sec - AV VTI 45 cm - AV peak gradient 38 mmHg - AV mean gradient 20 mmHg - LVOT diameter 2 cm - LVOT Vmax 0.9 m/sec - LVOT VTI 14 cm - LVOT peak gradient 3.2 mmHg - LVOT mean gradient 1.6 mmHg - SV LVOT 43.24 ml - IBRAHIMA (continuity Vmax) 0.9 cm2 - IBRAHIMA (continuity VTI) 1 cm2 - Name Value Normal Range MV Vmax 3.2 m/sec - MV VTI 81.5 cm - MV peak gradient 41 mmHg - MV mean gradient 22 mmHg - MV PHT 200 msec - MVA (planimetry) 0.5 cm2 - MVA (PHT) 1.1 cm2 - MVA (continuity VTI) 0.5 cm2 - Name Value Normal Range TR Vmax 3.9 m/sec - TR peak gradient 61 mmHg - RAP 8 mmHg - RVSP 69 mmHg - Name Value Normal Range PV Vmax 0.6 m/sec - PV peak gradient 1.6 mmHg -
[2017-05-08] MEDS: Carvedilol TAB* 25 MG PO SCH ×2 (12:03→21:14)
--- NOTE | 2017-05-08 16:29 | PN ---
Subjective Date of Service: 05/08/17 Interval History: pt feels well today, his legs had been swollen x 1 week Objective Active Medications: Acetaminophen (Tylenol Tab*) 650 mg PO Q4H PRN PRN Reason: FEVER/PAIN Amlodipine Besylate (Norvasc Tab*) 5 mg PO DAILY ON LICENSE OF [facility] Last Admin: 05/08/17 08:58 Dose: 5 mg Aspirin (Aspirin Ec Low Dose*) 81 mg PO DAILY ON LICENSE OF [facility] Last Admin: 05/08/17 08:58 Dose: 81 mg Atorvastatin Calcium (Lipitor*) 40 mg PO BEDTIME ON LICENSE OF [facility] Last Admin: 05/07/17 21:50 Dose: 40 mg Carvedilol (Coreg Tab*) 25 mg PO BID ON LICENSE OF [facility] Last Admin: 05/08/17 12:03 Dose: 25 mg Furosemide (Lasix Tab*) 40 mg PO DAILY ON LICENSE OF [facility] Heparin Sodium (Porcine) (Heparin Vial(*)) 5,000 units SUBCUT Q8HR ON LICENSE OF [facility] Last Admin: 05/08/17 14:26 Dose: 5,000 units Vital Signs 05/07/17 05/07/17 05/07/17 20:30 20:50 21:00 Temperature Pulse Rate 104 135 102 Respiratory 26 28 26 Rate Blood Pressure 152/75 (mmHg) O2 Sat by Pulse 95 99 99 Oximetry 05/07/17 05/07/17 05/07/17 21:08 21:21 21:25 Temperature 98.6 F Pulse Rate 103 106 83 Respiratory 28 30 Rate Blood Pressure 157/73 157/73 (mmHg) O2 Sat by Pulse 99 98 Oximetry 05/07/17 05/07/17 05/07/17 21:28 21:30 21:38 Temperature Pulse Rate 104 105 Respiratory 31 25 Rate Blood Pressure 142/83 142/84 (mmHg) O2 Sat by Pulse 98 98 Oximetry 05/07/17 05/07/17 05/07/17 21:40 21:41 21:46 Temperature Pulse Rate 116 102 Respiratory 29 27 Rate Blood Pressure 136/78 (mmHg) O2 Sat by Pulse 99 99 99 Oximetry 05/07/17 05/07/17 05/07/17 21:50 22:00 22:04 Temperature 207.9 F Pulse Rate 105 105 Respiratory 25 26 27 Rate Blood Pressure 142/84 159/94 (mmHg) O2 Sat by Pulse 99 99 Oximetry 05/07/17 05/07/17 05/07/17 22:16 22:30 22:45 Temperature Pulse Rate 99 99 98 Respiratory 28 27 24 Rate Blood Pressure 126/87 115/83 125/90 (mmHg) O2 Sat by Pulse 99 99 99 Oximetry 05/07/17 05/07/17 05/07/17 23:00 23:09 23:16 Temperature Pulse Rate 100 98 101 Respiratory 22 24 25 Rate Blood Pressure 131/79 150/99 (mmHg) O2 Sat by Pulse 93 95 94 Oximetry 05/07/17 05/07/17 05/08/17 23:30 23:32 00:00 Temperature 97.6 F Pulse Rate 101 101 97 Respiratory 23 21 21 Rate Blood Pressure 181/163 129/91 103/73 (mmHg) O2 Sat by Pulse 93 95 95 Oximetry 05/08/17 05/08/17 05/08/17 00:30 00:41 00:42 Temperature Pulse Rate 95 95 Respiratory 19 22 Rate Blood Pressure 102/71 (mmHg) O2 Sat by Pulse 95 95 95 Oximetry 05/08/17 05/08/17 05/08/17 01:00 01:30 02:00 Temperature Pulse Rate 97 95 95 Respiratory 19 20 21 Rate Blood Pressure 117/74 139/78 (mmHg) O2 Sat by Pulse 95 95 95 Oximetry 05/08/17 05/08/17 05/08/17 02:01 02:30 03:00 Temperature Pulse Rate 93 93 90 Respiratory 19 18 17 Rate Blood Pressure 121/69 104/72 107/71 (mmHg) O2 Sat by Pulse 97 95 95 Oximetry 05/08/17 05/08/17 05/08/17 03:30 03:58 04:00 Temperature 96.7 F Pulse Rate 91 90 Respiratory 27 17 Rate Blood Pressure 100/74 110/72 (mmHg) O2 Sat by Pulse 95 95 Oximetry 05/08/17 05/08/17 05/08/17 04:09 05:00 06:00 Temperature Pulse Rate 93 91 88 Respiratory 19 20 19 Rate Blood Pressure 107/65 116/73 113/77 (mmHg) O2 Sat by Pulse 95 95 95 Oximetry 05/08/17 05/08/17 05/08/17 07:00 07:41 08:00 Temperature 97.1 F Pulse Rate 85 84 Respiratory 19 16 Rate Blood Pressure 96/69 123/67 (mmHg) O2 Sat by Pulse 95 94 Oximetry 09/03/1705/08/17 05/08/17 09:00 09:01 09:41 Temperature Pulse Rate 87 Respiratory 22 19 Rate Blood Pressure 126/73 (mmHg) O2 Sat by Pulse 93 94 Oximetry 05/08/17 05/08/17 05/08/17 10:00 10:01 11:00 Temperature Pulse Rate 92 92 88 Respiratory 21 23 18 Rate Blood Pressure 99/58 (mmHg) O2 Sat by Pulse 92 91 93 Oximetry 05/08/17 05/08/17 05/08/17 11:01 11:56 12:00 Temperature 97.6 F Pulse Rate 88 82 Respiratory 20 23 Rate Blood Pressure 101/66 126/68 (mmHg) O2 Sat by Pulse 92 91 Oximetry 05/08/17 05/08/17 05/08/17 13:00 13:01 14:00 Temperature Pulse Rate 77 76 86 Respiratory 19 22 22 Rate Blood Pressure 114/56 (mmHg) O2 Sat by Pulse 93 92 93 Oximetry 05/08/17 05/08/17 05/08/17 14:01 15:00 15:01 Temperature Pulse Rate 85 82 82 Respiratory 18 24 22 Rate Blood Pressure 94/56 105/63 (mmHg) O2 Sat by Pulse 93 93 95 Oximetry 05/08/17 05/08/17 15:37 16:00 Temperature 97.7 F Pulse Rate 83 Respiratory 23 Rate Blood Pressure 116/69 (mmHg) O2 Sat by Pulse 93 Oximetry Oxygen Devices in Use Now: None Appearance: 76 yo M in nAD, aAOx3 Eyes: No Scleral Icterus, PERRLA Ears/Nose/Mouth/Throat: NL Teeth, Lips, Gums, Mucous Membranes Moist Neck: NL Appearance and Movements; NL JVP, Trachea Midline Respiratory: Symmetrical Chest Expansion and Respiratory Effort, Clear to Auscultation Cardiovascular: NL Sounds; No Murmurs; No JVD, RRR Abdominal: NL Sounds; No Tenderness; No Distention Lymphatic: No Cervical Adenopathy Extremities: No Clubbing, Cyanosis, - - +1 pedal edema b/l Skin: No Rash or Ulcers, No Nodules or Sclerosis Neurological: Alert and Oriented x 3, NL Muscle Strength and Tone Result Diagrams: 05/08/17 05:39 05/08/17 06:35 Additional Lab and Data: Lab Results 05/07/17 05/07/17 05/07/17 Range/Units 19:23 19:23 19:23 WBC 12.1 H (3.5-10.8) 10^3/ul RBC 5.33 (4.0-5.4) 10^6/ul Hgb 16.4 (14.0-18.0) g/dl Hct 51 (42-52) % MCV 95 H (80-94) fL MCH 31 (27-31) pg MCHC 33 (31-36) g/dl RDW 14 (10.5-15) % Plt Count 157 (150-450) 10^3/ul MPV 9 (7.4-10.4) um3 Neut % (Auto) 85.5 H (38-83) % Lymph % (Auto) 4.7 L (25-47) % [place] % (Auto) 8.4 (1-9) % Eos % (Auto) 0.9 (0-6) % Baso % (Auto) 0.5 (0-2) % Absolute Neuts (auto) 10.4 H (1.5-7.7) 10^3/ul Absolute Lymphs (auto) 0.6 L (1.0-4.8) 10^3/ul Absolute Monos (auto) 1.0 H (0-0.8) 10^3/ul Absolute Eos (auto) 0.1 (0-0.6) 10^3/ul Absolute Basos (auto) 0.1 (0-0.2) 10^3/ul Absolute Nucleated RBC 0 10^3/ul Nucleated RBC % 0 INR (Anticoag Therapy) 0.85 L (0.89-1.11) D-Dimer, Quantitative 857 H (Less Than 230) ng/mL Sodium 135 (133-145) mmol/L Potassium 4.6 (3.5-5.0) mmol/L Chloride 104 (101-111) mmol/L Carbon Dioxide 22 (22-32) mmol/L Anion Gap 9 (2-11) mmol/L BUN 27 H (6-24) mg/dL Creatinine 1.08 (0.67-1.17) mg/dL Est GFR ( Amer) 86.0 (>60) Est GFR (Non-Af Amer) 66.8 (>60) BUN/Creatinine Ratio 25.0 H (8-20) Glucose 103 H (70-100) mg/dL Lactic Acid (0.5-2.0) mmol/L Calcium 9.3 (8.6-10.3) mg/dL Total Bilirubin 0.90 (0.2-1.0) mg/dL AST 30 (13-39) U/L ALT 20 (7-52) U/L Alkaline Phosphatase 64 (34-104) U/L Troponin I 0.01 (<0.04) ng/mL C-Reactive Protein 13.99 H (< 5.00) mg/L B-Natriuretic Peptide ( - 100) pg/mL Total Protein 7.6 (6.4-8.9) g/dL Albumin 3.7 (3.2-5.2) g/dL Globulin 3.9 (2-4) g/dL Albumin/Globulin Ratio 0.9 L (1-3) 05/07/17 05/07/17 Range/Units 19:23 19:23 WBC (3.5-10.8) 10^3/ul RBC (4.0-5.4) 10^6/ul Hgb (14.0-18.0) g/dl Hct (42-52) % MCV (80-94) fL MCH (27-31) pg MCHC (31-36) g/dl RDW (10.5-15) % Plt Count (150-450) 10^3/ul MPV (7.4-10.4) um3 Neut % (Auto) (38-83) % Lymph % (Auto) (25-47) % [place] % (Auto) (1-9) % Eos % (Auto) (0-6) % Baso % (Auto) (0-2) % Absolute Neuts (auto) (1.5-7.7) 10^3/ul Absolute Lymphs (auto) (1.0-4.8) 10^3/ul Absolute Monos (auto) (0-0.8) 10^3/ul Absolute Eos (auto) (0-0.6) 10^3/ul Absolute Basos (auto) (0-0.2) 10^3/ul Absolute Nucleated RBC 10^3/ul Nucleated RBC % INR (Anticoag Therapy) (0.89-1.11) D-Dimer, Quantitative (Less Than 230) ng/mL Sodium (133-145) mmol/L Potassium (3.5-5.0) mmol/L Chloride (101-111) mmol/L Carbon Dioxide (22-32) mmol/L Anion Gap (2-11) mmol/L BUN (6-24) mg/dL Creatinine (0.67-1.17) mg/dL Est GFR ( Amer) (>60) Est GFR (Non-Af Amer) (>60) BUN/Creatinine Ratio (8-20) Glucose (70-100) mg/dL Lactic Acid 0.9 (0.5-2.0) mmol/L Calcium (8.6-10.3) mg/dL Total Bilirubin (0.2-1.0) mg/dL AST (13-39) U/L ALT (7-52) U/L Alkaline Phosphatase (34-104) U/L Troponin I (<0.04) ng/mL C-Reactive Protein (< 5.00) mg/L B-Natriuretic Peptide 564 H ( - 100) pg/mL Total Protein (6.4-8.9) g/dL Albumin (3.2-5.2) g/dL Globulin (2-4) g/dL Albumin/Globulin Ratio (1-3) Microbiology and Other Data: Microbiology 05/07/17 21:00 Nasal Screen MRSA (PCR)(BLADIMIR) - Final Nasal Mrsa Negative Assess/Plan/Problems-Billing Assessment: Ms. Orozco is a 76 yo male with PMH significant for MV replacement , pacemaker, HLD, CVA, and HTN who presented to the emergency room with CHF requiring BIPAP - Patient Problems (1) Acute diastolic (congestive) heart failure Comment: Resulting in acute hypoxemic respiratory failure requiring BIPAP EF of 65% Today off 02 Lasix was held 1 week ago when pt presented with acute rencal failure and HTN will restart it tomorrow PO (2) Mitral valve replaced Comment: high gradient noted on Echo today Will order KATE for tomorrow (3) HTN (hypertension) Comment: controlled with coreg, norvasc (4) HLD (hyperlipidemia) Comment: - Continue atorvastatin (5) Troponin I above reference range Comment: due to demand ischemia and CHF (6) DVT prophylaxis Comment: - Continue SQ Heparin
[2017-05-08] MEDS: Atorvastatin* 40 MG TAB PO SCH (21:14)
[2017-05-09] MEDS: Heparin VIAL(*) 5000 UNITS/ML VIAL (FIVE THOUSAND) SUBCUT SCH ×2 (05:24→13:28)
[2017-05-09 06:03] LABS: BUN/Creatinine Ratio 29.8 (8-20); Calcium 8.6 mg/dL (8.6-10.3); EGFR African American 73.3 (>60)
[2017-05-09] MEDS ORDERED: Furosemide TAB* 40 MG PO SCH (09:00)
[2017-05-09] MEDS ORDERED: Midazolam* 1 MG/ML 5 ML VIAL (5 MG) ONE (09:20)
[2017-05-09] MEDS ORDERED: Naloxone* 0.4 MG/ML 1 ML VIAL ONE (09:21)
[2017-05-09] MEDS ORDERED: Lidocaine 2% VISCOUS* 15 ML UDC ONE (09:21)
[2017-05-09] MEDS ORDERED: fentaNYL* 50 MCG/ML 2 ML VIAL (100 MCG VIAL) ONE (09:21)
[2017-05-09] MEDS ORDERED: Flumazenil* 0.1 MG/ML 5 ML MDV ONE (09:21)
--- NOTE | 2017-05-09 11:51 | TEE ---
Patient: RADHA AKBAR [facility] Rec#: [id number] : 1940 Date: 05/09/2017 Age: 76y Height: 180.34 cm / 71.0 in Weight: 91.63 kg / 202.0 lbs Sex: M BSA: 2.12 Room#: [facility] Type: Inpatient Referring: Kaykay Conrad MD Performing: Hang Denny MD Reading: Hang Denny MD Hopper Feeder: Bonnie Townsend RDCS Nurse: Naty Watts RN Transesophageal Echocardiogram Indication: Prosthetic Mitral Valve. BP: 112/59 HR: 83 Rhythm: Paced Findings History: S/P MV replacement porcine valve 2013, HTN, HLD, CVA, pacer. Technical Comments: The study quality is good. Left Ventricle: The left ventricular chamber size is normal. The left ventricle appears hyperdynamic. The estimated ejection fraction is greater than 65%. Left Atrium: The left atrium is mild to moderately dilated. Spontaneous echo contrast is present in the left atrium cavity. No thrombus is visualized within the left atrium. There is no thrombus visualized in the left atrial appendage. although not well visualized. Right Ventricle: The right ventricular cavity size is normal. The right ventricular global systolic function is normal. A pacemaker wire is visualized in the right ventricle. Right Atrium: The right atrium is mildly dilated. A pacemaker wire is visualized in the right atrium. Interatrial septum appears intact without evidence of shunting. The bubble study is negative. A patent foramen ovale is not demonstrated with color Doppler and agitated contrast. Aortic Valve: The aortic valve is trileaflet. The aortic valve leaflets are mildly thickened. There is no evidence of aortic regurgitation. There is no evidence of aortic stenosis. Mitral Valve: There is mild mitral regurgitation. There is severe mitral stenosis. A porcine bioprosthetic mitral valve is present. The bioprosthetic mitral valve appears stenotic. Tricuspid Valve: The tricuspid valve leaflets are normal. There is mild to moderate tricuspid regurgitation. There is no tricuspid stenosis. Pulmonic Valve: The pulmonic valve appears normal. There is a trace pulmonic regurgitation. There is no pulmonic stenosis. Pericardium: There is no significant pericardial effusion. Aorta: There is mild dilatation of the ascending aorta. There is no dilation of the aortic root. There is plaque visualized in the transverse aorta. There is mild-moderate atherosclerotic plaque in the visualize segments of the aorta. Pulmonary Artery: The main pulmonary artery is not well visualized. Venous: The bicaval view was obtained and appears normal. The pulmonary veins appear normal. 2 of 4 visualized. The pulmonary veins appear normal in size. KATE Procedures: All standard views were attempted within the limitations of patient tolerance and safety. History and physical as well as labs were reviewed. The patient was in a fasting state. Risks and benefits of the procedure, including alternatives, were discussed and written informed consent was obtained. The patient and/or their health care energy conservation representative expressed understanding of the procedure, risks and benefits. Baseline and continuous monitoring of blood pressure, heart rate, pulse oximetry and heart rhythm was performed throughout the procedure. The appropriate time-out procedure was performed as per [facility] protocol. The patient was placed in the left lateral decubitus position. The patient's posterior pharynx was anesthetized with 20ml of 2% viscous lidocaine. The patient received IV Midazolam with a total dose of 3 mg. The patient received IV Fentanyl with a total dose of 50 mcg. The multiplane transesophageal echocardiogram probe was inserted through the posterior oropharynx and advanced into the esophagus without difficulty. Multiple 2D images were obtained of the heart and its related structures. Color flow Doppler was used for evaluation. Spectral Doppler was also used. The atrial septum was interrogated with color flow Doppler. At the conclusion of the procedure the probe was removed with continuous suction without complications. The patient tolerated the procedure with no apparent complications. Contrast: Normal saline was used as contrast for the bubble study. Image 45. Intravenous contrast was used to help determine presence of intracardiac shunting. Conclusions The left ventricular chamber size is normal. The estimated ejection fraction is greater than 65%. The left atrium is mild to moderately dilated. Spontaneous echo contrast is present in the left atrium cavity. No thrombus is visualized within the left atrium. A pacemaker wire is visualized in the right ventricle. A pacemaker wire is visualized in the right atrium. Interatrial septum appears intact without evidence of shunting. There is mild mitral regurgitation. A porcine bioprosthetic mitral valve is present. The bioprosthetic mitral valve appears stenotic. There is severe mitral stenosis. There is mild to moderate tricuspid regurgitation. There is a trace pulmonic regurgitation. There is mild dilatation of the ascending aorta. There is plaque visualized in the transverse aorta. There is mild-moderate atherosclerotic plaque in the visualize segments of the aorta. Measurements Name Value Normal Range Aortic Annulus 2 cm (1.4 - 2.6) Ao root diameter (2D) 3.2 cm (2.1 - 3.5) Ascending Ao 3.9 cm (2.1 - 3.4) Name Value Normal Range MV E-wave Vmax 2.58 m/sec - MV deceleration time 513.7 msec - MV A-wave Vmax 2.11 m/sec - MV E:A ratio 1.22 ratio - Name Value Normal Range MV Vmax 2.75 m/sec - MV VTI 87.97 cm - MV peak gradient 30.18 mmHg - MV mean gradient 17.86 mmHg - MV annulus VTI 88.9 cm - MV PHT 125.36 msec - MVA (PHT) 1.75 cm2 -
[2017-05-09] MEDS: amLODIPine TAB* 5 MG PO SCH (12:02)
[2017-05-09] MEDS: Carvedilol TAB* 25 MG PO SCH (12:03)
[2017-05-09] MEDS: Aspirin EC Low Dose* 81 MG TAB.EC PO SCH (12:03)
[2017-05-09] MEDS ORDERED: Furosemide IV* 10 MG/ML 2 ML VIAL (20 MG) IV ONE (13:13)
[2017-05-09] MEDS ORDERED: Furosemide IV* 10 MG/ML 2 ML VIAL (20 MG) ONE (13:26)
--- NOTE | 2017-05-09 14:46 | CONS ---
CC: Hospitalist Service; Dr. Denny; Dr. Garcia. CARDIOLOGY CONSULTATION: DATE OF CONSULT: 05/09/17. HISTORY OF PRESENT ILLNESS: I was asked by the hospitalist service to see this 76- year-old male fercho cardozo who is known to me from regular cardiology followup with me who presented to the hospital with shortness of breath and swelling of the lower extremities. The patient does have extensive cardiac history including in January 2014 bioprosthetic mitral valve replacement secondary to severe mitral in sufficiency done by Dr. Cerna at [facility]. In January 2014 he presented with CVA to the [facility]. He does have history of mild aortic stenosis and minimal residual wea kness of the left side, hyperlipidemia, hypertriglyceridemia, history of anemia and history of pulmo nary hypertension. Apparently, the patient recently his outpatient Lasix 20 mg daily was discontinue d and he presented with some symptoms of shortness of breath, gaining weight, and worsening of the s welling of the lower extremities. He gives no chest pain, no dizziness, no syncope, no orthopnea, n o PND, no nausea, no vomiting, no fever, no chills, no skin rash, no tremors, no hematochezia, no na usea is appreciated. During this hospitalization he had yesterday a transthoracic echocardiogram [place] t was reported to have severe mitral stenosis with mean ingredient of 20 mmHg and severe pulmonary h ypertension with a normal left ventricular systolic function. A transesophageal echocardiograph was further recommended, which I did today and it did show the patient to have the mitral valve biopros thetic to be severely restricted in opening and mean gradient by hemodynamics and pressure halftime of 18 mmHg, which is consistent with severe mitral stenosis. The patient is without, at the present time, overt congestive heart failure. I just placed a phone call to Dr. Tyler Cerna from the card iothoracic surgery services at [facility] who originally did his surgery in 2013 to discuss this patient further. His review of all other system essentially is negative. PAST MEDICAL HISTORY: Include history of severe mitral insufficiency, hyperlipidemia, CVA on the le ft side and systemic arterial hypertension. PAST SURGICAL HISTORY: As outlined above. MEDICATIONS: His medications as an outpatient include: 1. Amlodipine 5 mg daily. 2. Perry-3 fatty acid daily. 3. Multivitamins daily. 4. Coreg 25 mg twice a day. 5. Lipitor 40 mg daily. 6. Aspirin 81 mg daily. ALLERGIES: Includes VASOTEC and ERYTHROMYCIN. FAMILY HISTORY: No family history of premature coronary artery disease. SOCIAL HISTORY: Used to smoke, he quit many years ago. He does drink 2 drinks per night and no his tory of illicit drug use. REVIEW OF SYSTEMS: His review of all other systems is essentially negative. PHYSICAL EXAMINATION: He is awake, alert, and oriented. He is not in acute distress. His vitals, blood pressure 121/70, pulse is 70 and sinus rhythm. Head and Neck Exam: Normocephalic and atrauma tic. Head, Ears, Nose, and Throat: Essentially benign. Neck: Supple. JVP is not elevated. No car otid bruits. No mass in the neck is appreciated. Chest: Clear to auscultation. No rales, no whee zes, no added sounds. Heart: Normal. S1, S2. No added sounds. No gallops, no rubs, that is a gr julio 2/6 to 3/6 diastolic murmur in the apex. Abdomen: Benign. Positive bowel sounds. Extremities: No edema, no cyanosis, no clubbing. Skin exam is normal. Psych: Normal affect and mood. MANAGER OF PHARMACY: N o focal deficit is appreciated. DIAGNOSTIC STUDIES/LABORATORY DATA: Labs showed his white blood cell 8.2, hemoglobin 14, hematocrit 42, and platelets 118. His D-dimer 857. INR 0.87. His sodium 131, potassium 4, chloride 101, BUN 3 7, creatinine is 1.24, his troponin is 0.05, peak 0.06. His chest x-ray showed the patient to be in interstitial pulmonary edema. His echocardiogram transt horacic done May 07, showed the patient have EF 65%, severe mitral stenosis, mean gradient 22 mmHg, mild to moderate tricuspid insufficiency severe pulmonary hypertension, trace pulmonic insuff iciency. His EKG done May 08 showed him to be in sinus rhythm with poor R-wave progression and T-wave inversions V1 and V2 and some ST depressions V1 and V2 1 to 2 mm. IMPRESSION: The patient is a 76-year-old male patient who does have a history of severe mitral insu fficiency, status post bioprosthetic mitral valve replacement in January 2014, history of hyperlipidemi a, systemic arterial hypertension, history of anemia and he presented with the progress of symptoms of shortness of breath, swelling in the lower extremities and chest x-ray consistent with interstiti al edema and significantly abnormal transthoracic echocardiogram with hemodynamics consistent with s evere mitral stenosis and transesophageal echocardiogram that was done by me today showed him to hav e severely restricted mitral valve leaflets opening and hemodynamic consistent with severe mitral st enosis. The patient is, on today's exam, not in overt congestive heart failure. I discussed this w ith the hospitalist services. I discussed this with the patient and his . I just placed a phon e call with Dr. Tyler Cerna from the cardiothoracic services at [facility] who actu ally did the original surgery with the mitral valve replacement on this patient in January 2014. Baudiliow janna he is to continue his current medications with blood pressure medications, continue diuretics a ccordingly, I's and O's, keep electrolytes within normal limits, keep a close eye on his renal funct ions. I answered all of their concerns and questions up to their satisfaction. More than half of a t least 60 to 65 plus minutes was spent in education and counseling mode, discussing this patient fu rther and making further recommendations accordingly [id number]. [id number]/[facility] #: [id number]
[2017-05-09 16:34] VITALS: BP 107/60
--- NOTE | 2017-05-10 03:50 | TRS ---
CC: Dr. Denny; Dr. Delgado; Dr. Cerna, [facility]; Dr. Baird , Cardiology, [facility]; Dr. Dobbs, Hospitalist, [facility] TRANSFER SUMMARY: DATE OF ADMISSION: 05/07/17 DATE OF ANTICIPATED TRANSFER TO [facility]: 05/09/17 PRIMARY CARE PROVIDER: Dr. Delgado. The patient was also followed by Dr. Denny. ACCEPTING PHYSICIAN: Dr. Dobbs, hospitalist from [facility]. REASON FOR TRANSFER: Severe bioprosthetic mitral valve stenosis. SECONDARY DIAGNOSES: 1. The patient was in acute pulmonary edema with acute respiratory failure requiring BiPAP at admission that resolved within hours of admission. 2. History of mitral valve replacement with bioprosthetic valve that occurred in 2013. 3. Hypertension. 4. Hyperlipidemia. 5. History of cerebrovascular accident with residual left-sided numbness. 6. Pacemaker placed in 2013 as a consequence of cardiac surgery. CURRENT MEDICATIONS: Include: 1. Lasix 40 mg p.o. daily. 2. Lasix 20 mg IV x1 that the patient just received prior to transfer. 3. Aspirin 81 mg daily. 4. Lipitor 40 mg daily. 5. Coreg 25 mg b.i.d. 6. Amlodipine 5 mg daily. CONSULTATIONS DURING THE HOSPITAL STAY: Included Dr. Denny from Cardiology. PROCEDURES PERFORMED: Transesophageal echocardiogram performed by Dr. Denny on 05/09/17 showed EF greater of 65%, the left atrium was moderately dilated. There was spontaneous echo contrast present in the left atrium cavity. No thrombus was visualized. A pacemaker wire was visualized in the right ventricle and in the right atrium. Interatrial septum appeared intact without evidence of shunting. There was mild mitral regurgitation and bioprosthetic mitral valve appeared stenotic with severe mitral stenosis. There was [id number] tricuspid regurgitation, trace pulmonary regurgitation as well as mild dilatation of the ascending aorta. There was plaque visualized in the transverse aorta and mild-to- moderate atherosclerotic plaque in the segments of the aorta. LABORATORY DATA AND STUDIES: On 05/08/17, white blood cell count was 8.2, hemoglobin of 14.0, hematocrit of 42, and platelet of 118. On 05/09/17, sodium of 131, potassium of 4.0, chloride 101, carbon dioxide 26, BUN 37, creatinine 1.24. The patient's baseline creatinine in the past ranged from 0.94 to 1.33 in the past year. The patient's troponin ranged between 0.05 to 0.06 throughout his hospital stay. His liver function tests obtained at admission were unremarkable. Brain- natriuretic peptide obtained at admission was 564. CT angiogram of the chest obtained on 05/07/17, impression: " interstitial pulmonary edema with associated mild pleural effusions. Moderately limited CT pulmonary visualization due to motion artifact without compelling evidence of pulmonary embolism." HOSPITALIZATION COURSE: Shawn Orozco is a 76-year-old male with history of mitral valve replacement with bioprosthetic valve in 2013. At that point, back in 2013, he presented to our hospital with generalized weakness and severe hyponatremia with a sodium of 116. It was noted that it was mostly prerenal causes at that point. 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 At that point, the patient was transferred [facility]. His mitral valve was replaced with bioprosthetic valve. Although initially an infectious cause was considered, it was ruled out by Pathology at [facility]. The patient basically recovered from his ischemic CVA at that point, and he had been doing fine. Postoperatively in 2013, the patient required pacemaker placement. The patient currently is a resident of both [place] and [facility] and he has account coordinator in both states. An echocardiogram in 2017 in October did not show any marked bioprosthetic mitral valve abnormalities. At the end of April of 2017, the patient was admitted to our facility for high blood pressure documented as outpatient. At that point, it was also noted the patient's creatinine is slightly elevated at 1.2 and his Lasix was discontinued and the patient was placed on Norvasc and discharged home. Approximately 7 days later, he came back to our hospital with acute pulmonary edema. He required BiPAP at that point and his pulmonary edema and the symptoms resolved after BiPAP for several hours and 2 doses of IV Lasix at 40 mg each. On , the patient looked very good and was basically ready to be discharged, but his transthoracic echocardiogram showed high pressures across the mitral valve with no good visualization of the mitral valve. At this point, I discussed the case with the account coordinator on-call and a KATE was recommended. The KATE was performed by the patient's account coordinator, Dr. Denny, on 05/09/17 and showed severe mitral stenosis. Dr. Denny recommended transferring the patient to a tertiary care center for mitral valve replacement. Dr. Denny spoke with Dr. Cerna, patient's cardiothoracic surgeon from [facility], who accepted the patient for transfer. He also spoke with Dr. Dobbs, the hospitalist on service at [facility], who accepted the patient for transfer. Please note that during KATE procedure, the patient received 500 mL of intravenous hydration and he started developing crackles at bilateral bases of his lungs on auscultation as well as became mildly hypoxemic with oxygen saturation of 93% on 3 L of nasal cannula. Just prior to this dictation, the patient is receiving 20 mg of IV Lasix to treat possible fluid overload after the KATE procedure. PHYSICAL EXAMINATION AT TIME OF DISCHARGE: Blood pressure of 104/58, heart rate of 80 and regular, respiratory rate 22, oxygen saturation 93% on 3 L of oxygen nasal cannula and temperature of 98.6. General: The patient is a very pleasant 76-year-old male, who is in no acute distress. Alert, awake and oriented x3. HEENT: Head atraumatic, normocephalic. Eyes: Pupils are equal and reactive to light and accommodation. Oropharynx clear. Mucosa moist. Neck: Supple. No JVD. No bruits bilaterally. Cardiovascular: Regular rate and rhythm, no murmur. Respiratory: Crackles at bilateral bases. Otherwise clear. Abdomen: Soft, nontender. Bowel sounds present in all 4 quadrants. Extremities: There is trace bilateral pedal edema. Pulses 2+ bilaterally. There is no clubbing or cyanosis. Skin: On evaluation of the skin, no rashes or lesions appreciated. Psychologic evaluation: The patient is oriented x3 with no evidence of anxiety or depression. The patient is being transferred to [facility] to be considered for mitral valve replacement. TIME SPENT: Approximately 55 minutes were spent on the patient's transfer. [id number]/[facility] #: [id number] MTDD
== END 2017-05-09 16:30 | disposition short-term general hospital (02) | DRG 291 ==
LOC: ED 18:14 → ICU 20:28
PROVIDERS: ADMIT Internal Medicine; ATTEND Internal Medicine
PROC: B24BZZ4 Ultrasonography of Heart with Aorta, Transesophageal (ICD-10-PCS; principal; 2017-05-09 09:45)
DX: I11.0 Hypertensive heart disease with heart failure (principal); J96.01 Acute respiratory failure with hypoxia; N17.9 Acute kidney failure, unspecified; I24.8 Other forms of acute ischemic heart disease; T82.857A Stenosis of other cardiac prosthetic devices, implants and grafts, initial encounter; I69.354 Hemiplegia and hemiparesis following cerebral infarction affecting left non-dominant side; I50.31 Acute diastolic (congestive) heart failure; J44.9 Chronic obstructive pulmonary disease, unspecified; R40.2412 Glasgow coma scale score 13-15, at arrival to emergency department; E78.5 Hyperlipidemia, unspecified; E78.1 Pure hyperglyceridemia; I77.819 Aortic ectasia, unspecified site; I07.1 Rheumatic tricuspid insufficiency; I27.2 Other secondary pulmonary hypertension; Y71.2 Prosthetic and other implants, materials and accessory cardiovascular devices associated with adverse incidents; Y92.9 Unspecified place or not applicable; Z79.82 Long term (current) use of aspirin; Z87.891 Personal history of nicotine dependence; Z88.1 Allergy status to other antibiotic agents; Z88.8 Allergy status to other drugs, medicaments and biological substances; Z72.89 Other problems related to lifestyle
CPT/HCPCS: 36415; 71010; 71275; 80048; 80053; 83605; 83880; 84484; 85025; 85379; 85610; 86140; 87641; 93005; 93306; 93312; 93325; 94660; 94760; 99156; A9270-GY; J1644; J1940; J2250; J2310; J3010; Q9967

== ENCOUNTER 2018-06-02 02:10 | Emergency (ER) | payer MEDICARE, OTHER ==
[2018-06-02] MEDS ORDERED: oxyCODONE/Acetamin 5/325 MG* TAB PO ONE ×2 (02:41→06:00)
--- NOTE | 2018-06-02 02:43 | ED ---
Lower Extremity - HPI Summary HPI Summary: Patient is a 77 y/o M w/ c/o left back knee pain onsetting two days ago. He states pain has progressively worsened since onset. Patient reports he has difficulty putting weight on his left leg. At baseline, patient is capable of walking without any assistance. PMHx of arthritis is denied, PSHx of heart valve surgery is noted. Patient is concerned he has a blood clot in this leg. On triage, pain is rated 4/10, nothing is noted to aggravate/alleviate Sx. 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 Home medications and allergies reviewed. - History of Current Complaint Chief Complaint: EDExtremityLower Stated Complaint: GENERAL ILLNESS Time Seen by Provider: 06/02/18 02:20 Hx Obtained From: Patient Mechanism Of Injury: Other - no injury reported Onset of Pain: Days - onset three days ago Onset/Duration: Days - onset 3 days ago Severity Currently: Moderate - 4/10 Pain Intensity: 4 Pain Scale Used: 0-10 Numeric - 4/10 Timing: Constant Location: Is Discrete @ - left back knee Associated Signs And Symptoms: Positive: Knee Pain - left back knee Aggravating Factor(s): Weight Bearing Alleviating Factor(s): Nothing - Allergies/Home Medications Allergies/Adverse Reactions: Allergies Allergy/AdvReac Type Severity Reaction Status Date / Time enalapril Allergy Swelling Verified 06/02/18 03:01 Of Face,Lips,& Throat erythromycin base Allergy Nausea And Verified 06/02/18 03:01 [From Erythrocin] Vomiting PMH/Surg Hx/FS Hx/Imm Hx Endocrine/Hematology History: Reports: Hx Anemia Denies: Hx Anticoagulant Therapy, Hx Blood Disorders, Hx Blood Transfusions, Hx Bone Marrow Disease, Hx Diabetes, Hx Systemic Lupus Erythematosus, Hx Sickle Cell Disease, Hx Thyroid Disease, Hx Unexplained Bleeding, Other Endocrine/ Hematological Disorders Cardiovascular History: Reports: Hx Hypercholesterolemia, Hx Hypertension, Hx Pacemaker/ICD - pacemaker placed 01/2014, Hx Valvular Heart Disease - mitral valve replacement 01/2014 Denies: Hx Aneurysm, Hx Angina, Hx Angioplasty, Hx Auto Implanted Cardiovert Defib, Hx Cardiac Arrest, Hx Cardiomegaly, Hx Congenital Heart Disease, Hx Congestive Heart Failure, Hx Coronary Artery Disease, Hx Deep Vein Thrombosis, Hx Embolism, Hx Hypotension, Hx Peripheral Vascular Disease, Hx Rheumatic Fever , Hx Syncope, Other Cardiovascular Problems/Disorders Respiratory History: Reports: Other Respiratory Problems/Disorders - smoker 30 years Denies: Hx Asthma, Hx Chronic Bronchitis, Hx Chronic Obstructive Pulmonary Disease (COPD), Hx Cystic Fibrosis, Hx Lung Cancer, Hx Pleural Effusion, Hx Pneumonia, Hx Pulmonary Edema, Hx Pulmonary Embolism, Hx Seasonal Allergies, Hx Sleep Apnea GI History: Denies: Hx Cirrhosis, Hx Crohn's Disease, Hx Diverticulosis, Hx Gall Bladder Disease, Hx Gastroesophageal Reflux Disease, Hx Gastrointestinal Bleed, Hx Hiatal Hernia, Hx Irritable Bowel, Hx Jaundice, Hx Obstructive Bowel, Hx Ileostomy, Hx Pyloric Stenosis, Hx Ulcer, Other GI Disorders History: Denies: Hx Acute Renal Failure, Hx Benign Prostatic Hyperplasia, Hx Chronic Renal Failure, Hx Dialysis, Hx Kidney Infection, Hx Kidney Stones, Other Problems/Disorders Musculoskeletal History: Reports: Other Musculoskeletal History - right wrist fx ~1999, broken ribs-no date Sensory History: Reports: Hx Contacts or Glasses Denies: Hx Cataracts, Hx Eye Injury, Hx Eye Prosthesis, Hx Glaucoma, Hx Legally Blind, Hx Macular Degeneration, Hx Vision Problem, Hx Deafness, Hx Hearing Aid, Hx Hearing Problem, Other Sensory Impairments Opthamlomology History: Reports: Hx Contacts or Glasses Denies: Hx Cataracts, Hx Eye Injury, Hx Eye Prosthesis, Hx Glaucoma, Hx Legally Blind, Hx Macular Degeneration, Hx Vision Problem, Other Sensory Impairments Neurological History: Reports: Hx CVA Denies: Hx Dementia, Hx Developmental Delay, Hx Headaches, Hx Migraine, Hx Nerve Disease, Hx Seizures, Hx Spinal Cord Injury, Hx Transient Ischemic Attacks (TIA), Other Neuro Impairments/Disorders Psychiatric History: Denies: Hx Anxiety, Hx Attention Deficit Hyperactivity Disorder, Hx Eating Disorder, Hx Depression, Hx Panic Disorder, Hx Post Traumatic Stress Disorder, Hx Inpatient Treatment, Hx Community Mental Health Tx, Hx Schizophrenia, Hx Bipolar Disorder, Hx Suicide Attempt, Hx of Violent Episodes Against Others, Hx Substance Abuse, Other Psychiatric Issues/Disorders - Cancer History Hx Chemotherapy: No Hx Radiation Therapy: No Hx Palliative Cancer Treatment: No - Surgical History Surgery Procedure, Year, and Place: trigger finger release . heart valve replacement 01/2014. pacer insertion 01/2014 [facility]x Anesthesia Reactions: No Infectious Disease History: No Infectious Disease History: Denies: Hx Clostridium Difficile, Hx Hepatitis, Hx Human Immunodeficiency Virus (HIV), Hx of Known/Suspected MRSA, Hx Tuberculosis, Hx Known/Suspected VRE , Hx Known/Suspected VRSA, History Other Infectious Disease, Traveled Outside the [place] in Last 30 Days - Family History Known Family History: Negative: Cardiac Disease - Social History Alcohol Use: Occasionally Alcohol Amount: 1 drink per day Substance Use Type: Reports: None Smoking Status (MU): Former Smoker Type: Cigarettes Length of Time of Smoking/Using Tobacco: 30 years Have You Smoked in the Last Year: No Review of Systems Negative: Fever - on vitals, temp is 99.4 F Positive: Other - left back knee pain All Other Systems Reviewed And Are Negative: Yes Physical Exam - Summary Physical Exam Summary: VITAL SIGNS: Reviewed. GENERAL: Patient is a well-developed and nourished male who is lying comfortable in the stretcher. Patient is not in any acute respiratory distress. HEAD AND FACE: No signs of trauma. No ecchymosis, hematomas or skull depressions. No sinus tenderness. EYES: PERRLA, EOMI x 2, No injected conjunctiva, no nystagmus. EARS: Hearing grossly intact. Ear canals and tympanic membranes are within normal limits. MOUTH: Oropharynx within normal limits. NECK: Supple, trachea is midline, no adenopathy, no JVD, no carotid bruit, no c- spine tenderness, neck with full ROM. CHEST: Symmetric, no tenderness at palpation LUNGS: Clear to auscultation bilaterally. No wheezing or crackles. CVS: Regular rate and rhythm, S1 and S2 present, no murmurs or gallops appreciated. ABDOMEN: Soft, non-tender. No signs of distention. No rebound no guarding, and no masses palpated. Bowel sounds are normal. EXTREMITIES: No edema, no cyanosis or clubbing. Limited ROM in LLE secondary to pain; left knee pain with flexion. No effusion is noted. NEURO: Alert and oriented x 3. No acute neurological deficits. Speech is normal and follows commands. SKIN: Dry and warm Triage Information Reviewed: Yes Vital Signs On Initial Exam: Initial Vitals Temp Pulse Resp BP Pulse Ox 99.4 F 78 16 141/86 96 06/02/18 02:11 06/02/18 02:11 06/02/18 02:11 06/02/18 02:11 06/02/18 02:11 Vital Signs Reviewed: Yes Diagnostics - Vital Signs Vital Signs Temp Pulse Resp BP Pulse Ox 06/02/18 02:15 78 17 158/69 97 06/02/18 02:11 99.4 F 78 16 141/86 96 - Laboratory Lab Statement: Any lab studies that have been ordered have been reviewed, and results considered in the medical decision making process. - Radiology right knee x-ray Xray Interpretation: No Acute Changes Radiology Interpretation Completed By: ED Physician - no acute findings; pending offical report left knee x-ray Xray Interpretation: No Acute Changes Radiology Interpretation Completed By: ED Physician - no acute findings; pending offical report - Ultrasound No standard instances Ultrasound Interpretation: No Acute Changes Ultrasound Interpretation Completed By: Radiologist - venous doppler study impressions: normal LLE duplex venous ultrasound. This report was reviewed by ED physician. Re-Evaluation - Re-Evaluation First Eval Re-Evaluation Time: 03:19 Comment: Patient declines pain meds Second Eval Re-Evaluation Time: 06:01 Comment: Patient changed his mind and accepted pain medication. He was given Percocet, 5/325 tab PO ONCE. Discussed results of x-ray and US with patient. Patient will be discharged to home and will follow up with orthopedic doctor in 1-2 days. Patient understands and agrees with this plan. Lower Extremity Course/Dx - Course Assessment/Plan: Patient is a 77 y/o M w/ c/o left back knee pain onsetting two days ago. He states pain has progressively worsened since onset. Patient reports he has difficulty putting weight on his left leg. At baseline, patient is capable of walking without any assistance. PMHx of arthritis is denied, PSHx of heart valve surgery is noted. Patient is concerned he has a blood clot in this leg. On triage, pain is rated 4/10, nothing is noted to aggravate/ alleviate Sx. On physical exam, left knee pain with flexion is noted. Left knee x-ray showed no acute findings. Venous doppler study impressions: normal LLE duplex venous ultrasound. This report was reviewed by ED physician. Patient declined pain medication initially, but later accepted medication and was given Percocet, 5/325 tab PO ONCE. Discussed results of x-ray and US with patient. Patient will be discharged to home and will follow up with orthopedic doctor in 1-2 days. Patient understands and agrees with this plan. Dx of left knee pain. - Diagnoses Provider Diagnoses: Left knee pain Discharge - Sign-Out/Discharge Documenting (check all that apply): Patient Departure - discharge - Discharge Plan Condition: Stable Disposition: HOME Prescriptions: oxyCODONE/Acetamin 5/325 MG* [Percocet 5/325 TAB*] 1 tab PO Q6H PRN #14 tab MDD 4 PRN Reason: Pain Patient Education Materials: Knee Pain (ED) Referrals: [facility] [Provider Group] - 2 Days Additional Instructions: RETURN TO THE EMERGENCY DEPARTMENT FOR CHANGING OR WORSENING SYMPTOMS. FOLLOW UP WITH ORTHOPEDIC DOCTOR IN 1-2 DAYS. - Attestation Statements Document Initiated by Scribe: Yes Documenting Scribe: Clifford Norris Provider For Whom Scribe is Documenting (Include Credential): Aileen Sanchez MD Scribe Attestation: IClifford , scribed for Aileen Sanchez MD on 06/02/18 at 0613.
--- NOTE | 2018-06-02 05:31 | RAD ---
EXAM: US Duplex Left Lower Extremity Veins CLINICAL HISTORY: 77 years old, male; Pain; Leg, lower; Left; Patient HX: Lle pain and swelling TECHNIQUE: Real-time duplex ultrasound scan of the left lower extremity veins integrating B-mode two-dimensional vascular structure, Doppler spectral analysis, color flow Doppler imaging and compression. COMPARISON: No relevant prior studies available. FINDINGS: Deep veins: Unremarkable. No DVT in the visualized common femoral, femoral, proximal deep femoral or popliteal veins. The veins demonstrate normal color flow, are normally compressible, with normal phasic flow and/or augmentation response. Superficial veins: Unremarkable. No thrombus in the visualized great saphenous vein. Soft tissues: No acute findings. No popliteal cyst. IMPRESSION: Normal left lower extremity duplex venous ultrasound.
[2018-06-02 06:10] VITALS: BP 141/64
--- NOTE | 2018-06-02 07:53 | RAD ---
INDICATION: Atraumatic left knee pain COMPARISON: None TECHNIQUE: 4 view radiograph of the left knee. FINDINGS: The visualized bones are well-corticated and properly aligned. The joint spaces are properly maintained. There is no radiographic evidence of joint effusion. There is no acute fracture, dislocation or other focal bony abnormality. There are scattered coarse calcification overlying the distal left superficial femoral artery and superior popliteal artery. IMPRESSION: 1. No radiographically apparent acute abnormality of the left knee. 2. Incidentally noted is calcified atherosclerosis overlying the visualized left superficial femoral artery. Please correlate to signs or symptoms of left lower extremity arterial insufficiency. If the patient's symptoms persist, follow-up imaging is recommended. R0
== END 2018-06-02 06:40 | disposition home or self-care (01) ==
LOC: ED 02:10
DX: M25.562 Pain in left knee (principal); Z87.891 Personal history of nicotine dependence; Z88.3 Allergy status to other anti-infective agents; Z88.8 Allergy status to other drugs, medicaments and biological substances
CPT/HCPCS: 99283; A9270-GY

== ENCOUNTER 2019-04-09 04:09 | Observation (INO) | payer MEDICARE, OTHER ==
--- NOTE | 2019-04-09 04:48 | ED ---
Shortness of Breath - HPI Summary HPI Summary: Patient is a 78 y/o M presenting to ED via EMS with complaints of increased SOB since 0200 04/09/19. He reports that he has had cold Sx for the past few days. He denies fever but endorses slightly productive cough. PMHx of CHF is noted, patient has been taking his Lasix. He does not have oxygen at home. He denies Hx of emphysema, asthma, or COPD. On triage, pain is denied, nothing is noted to aggravate/alleviate Sx, and it is noted that EMS administered 0.4 mg nitro SL. Home medications and allergies are reviewed. - History of Current Complaint Chief Complaint: EDShortnessOfBreath Time Seen by Provider: 04/09/19 04:21 Hx Obtained From: Patient Onset/Duration: Lasting Hours - SOB, Lasting Days - cold Sx, Still Present Timing: Constant Current Severity: None Aggravating Factors: Nothing Alleviating Factors: Nothing Associated Signs & Symptoms: Cough (Productive) - Allergy/Home Medications Allergies/Adverse Reactions: Allergies Allergy/AdvReac Type Severity Reaction Status Date / Time enalapril Allergy Swelling Verified 04/09/19 04:26 Of Face,Lips,& Throat erythromycin base Allergy Nausea And Verified 04/09/19 04:26 [From Erythrocin] Vomiting Home Medications: Home Medications Coumadin TAB(*) 9 mg PO DAILY 04/09/19 [History Confirmed 04/09/19] Potassium 10 meq PO DAILY 04/09/19 [History Confirmed 04/09/19] PMH/Surg Hx/FS Hx/Imm Hx Endocrine/Hematology History: Reports: Hx Anemia Denies: Hx Anticoagulant Therapy, Hx Blood Disorders, Hx Blood Transfusions, Hx Bone Marrow Disease, Hx Diabetes, Hx Systemic Lupus Erythematosus, Hx Sickle Cell Disease, Hx Thyroid Disease, Hx Unexplained Bleeding, Other Endocrine/ Hematological Disorders Cardiovascular History: Reports: Hx Hypercholesterolemia, Hx Hypertension, Hx Pacemaker/ICD - pacemaker placed 01/2014, Hx Valvular Heart Disease - mitral valve replacement 01/2014 Denies: Hx Aneurysm, Hx Angina, Hx Angioplasty, Hx Auto Implanted Cardiovert Defib, Hx Cardiac Arrest, Hx Cardiomegaly, Hx Congenital Heart Disease, Hx Congestive Heart Failure, Hx Coronary Artery Disease, Hx Deep Vein Thrombosis, Hx Embolism, Hx Hypotension, Hx Peripheral Vascular Disease, Hx Rheumatic Fever , Hx Syncope, Other Cardiovascular Problems/Disorders Respiratory History: Reports: Other Respiratory Problems/Disorders - smoker 30 years Denies: Hx Asthma, Hx Chronic Bronchitis, Hx Chronic Obstructive Pulmonary Disease (COPD), Hx Cystic Fibrosis, Hx Lung Cancer, Hx Pleural Effusion, Hx Pneumonia, Hx Pulmonary Edema, Hx Pulmonary Embolism, Hx Seasonal Allergies, Hx Sleep Apnea GI History: Denies: Hx Cirrhosis, Hx Crohn's Disease, Hx Diverticulosis, Hx Gall Bladder Disease, Hx Gastroesophageal Reflux Disease, Hx Gastrointestinal Bleed, Hx Hiatal Hernia, Hx Irritable Bowel, Hx Jaundice, Hx Obstructive Bowel, Hx Ileostomy, Hx Pyloric Stenosis, Hx Ulcer, Other GI Disorders History: Denies: Hx Acute Renal Failure, Hx Benign Prostatic Hyperplasia, Hx Chronic Renal Failure, Hx Dialysis, Hx Kidney Infection, Hx Kidney Stones, Other Problems/Disorders Musculoskeletal History: Reports: Other Musculoskeletal History - right wrist fx ~1999, broken ribs-no date Sensory History: Reports: Hx Contacts or Glasses Denies: Hx Cataracts, Hx Eye Injury, Hx Eye Prosthesis, Hx Glaucoma, Hx Legally Blind, Hx Macular Degeneration, Hx Vision Problem, Hx Deafness, Hx Hearing Aid, Hx Hearing Problem, Other Sensory Impairments Opthamlomology History: Reports: Hx Contacts or Glasses Denies: Hx Cataracts, Hx Eye Injury, Hx Eye Prosthesis, Hx Glaucoma, Hx Legally Blind, Hx Macular Degeneration, Hx Vision Problem, Other Sensory Impairments Neurological History: Reports: Hx CVA Denies: Hx Dementia, Hx Developmental Delay, Hx Headaches, Hx Migraine, Hx Nerve Disease, Hx Seizures, Hx Spinal Cord Injury, Hx Transient Ischemic Attacks (TIA), Other Neuro Impairments/Disorders Psychiatric History: Denies: Hx Anxiety, Hx Attention Deficit Hyperactivity Disorder, Hx Eating Disorder, Hx Depression, Hx Panic Disorder, Hx Post Traumatic Stress Disorder, Hx Inpatient Treatment, Hx Community Mental Health Tx, Hx Schizophrenia, Hx Bipolar Disorder, Hx Suicide Attempt, Hx of Violent Episodes Against Others, Hx Substance Abuse, Other Psychiatric Issues/Disorders - Cancer History Hx Chemotherapy: No Hx Radiation Therapy: No Hx Palliative Cancer Treatment: No - Surgical History Surgery Procedure, Year, and Place: trigger finger release . heart valve replacement 01/2014. pacer insertion 01/2014 [facility]x Anesthesia Reactions: No Infectious Disease History: No Infectious Disease History: Denies: Hx Clostridium Difficile, Hx Hepatitis, Hx Human Immunodeficiency Virus (HIV), Hx of Known/Suspected MRSA, Hx Tuberculosis, Hx Known/Suspected VRE , Hx Known/Suspected VRSA, History Other Infectious Disease, Traveled Outside the [place] in Last 30 Days - Family History Known Family History: Negative: Cardiac Disease - Social History Alcohol Use: Daily Alcohol Amount: 1 drink per day Substance Use Type: Reports: None Smoking Status (MU): Former Smoker Type: Cigarettes Length of Time of Smoking/Using Tobacco: 30 years Have You Smoked in the Last Year: No Review of Systems Constitutional: Other - positive - cold Sx Negative: Fever Positive: Shortness Of Breath, Cough All Other Systems Reviewed And Are Negative: Yes Physical Exam - Summary Physical Exam Summary: VITAL SIGNS: Reviewed. GENERAL: Patient is a well-developed and nourished male who is lying comfortable in the stretcher. Patient is not in any acute respiratory distress. HEAD AND FACE: No signs of trauma. No ecchymosis, hematomas or skull depressions. No sinus tenderness. EYES: PERRLA, EOMI x 2, No injected conjunctiva, no nystagmus. EARS: Hearing grossly intact. Ear canals and tympanic membranes are within normal limits. MOUTH: Oropharynx within normal limits. NECK: Supple, trachea is midline, no adenopathy, no JVD, no carotid bruit, no c- spine tenderness, neck with full ROM CHEST: Symmetric, no tenderness at palpation LUNGS: Bilateral expiratory wheezes CVS: Regular rate and rhythm, S1 and S2 present, no murmurs or gallops appreciated. ABDOMEN: Soft, non-tender. No signs of distention. No rebound no guarding, and no masses palpated. Bowel sounds are normal. EXTREMITIES: FROM in all major joints, no cyanosis or clubbing. Trace BLE edema with chronic venous stasis changes. NEURO: Alert and oriented x 3. No acute neurological deficits. Speech is normal and follows commands. SKIN: Dry and warm Triage Information Reviewed: Yes Vital Signs On Initial Exam: Initial Vitals Temp Pulse Resp BP Pulse Ox 99.3 F 70 20 157/56 95 04/09/19 04:10 04/09/19 04:10 04/09/19 04:10 04/09/19 04:10 04/09/19 04:10 Vital Signs Reviewed: Yes Diagnostics - Vital Signs Vital Signs Temp Pulse Resp BP Pulse Ox 04/09/19 04:27 22 155/57 04/09/19 04:26 70 18 96 04/09/19 04:10 99.3 F 70 20 157/56 95 - Laboratory Result Diagrams: 04/09/19 05:22 04/09/19 05:22 Lab Statement: Any lab studies that have been ordered have been reviewed, and results considered in the medical decision making process. - Radiology CXR Radiology Interpretation Completed By: ED Physician Summary of Radiographic Findings: Bilateral interstitial infiltrate and cardiomegaly consistent with CHF, pending official report. - EKG 0452 Cardiac Rate: Other Rate - EKG showed paced rhythm with rate of 70 BPM Summary of EKG Findings: EKG showed paced rhythm with rate of 70 BPM 0513 Cardiac Rate: Other Rate - EKG showed paced rhythm with rate of 70 BPM Summary of EKG Findings: EKG showed paced rhythm with rate of 70 BPM Re-Evaluation - Re-Evaluation First Eval Re-Evaluation Time: 06:01 Comment: Results of labs and tests were discussed, patient to be admitted. Course/Dx - Course Course Of Treatment: Patient is a 78 y/o M presenting to ED via EMS with complaints of increased SOB since 0200 04/09/19. He reports that he has had cold Sx for the past few days. He denies fever but endorses slightly productive cough. PMHx of CHF is noted, patient has been taking his Lasix. He does not have oxygen at home. He denies Hx of emphysema, asthma, or COPD. On triage, pain is denied, nothing is noted to aggravate/alleviate Sx, and it is noted that EMS administered 0.4 mg nitro SL. EKGs showed paced rhythm with rate of 70 BPM. Labs showed RBC 4.04, Hgb 12.7, Hct 38, RDW 16, absolute lymphs 0.4, INR 3.85, APTT 59.7, BUN 30, creatinine 1.34, BUN/creatinine ratio 22.4, glucose 104 , calcium 8.3, trop 0.03, CRP 15.27, BNP 525, albumin 3.1, albumin/globulin ratio 0.9. During ED coruse, patient received nitro past 1 inch, Lasix 40 mg IV and one duoneb. CXR showed bilateral interstitial infiltrate and cardiomegaly consistent with CHF. 0553 - Patient's case was discussed with Dr. Alcala, Dr. Alcala accepts for admission. - Diagnoses Provider Diagnoses: CHF (congestive heart failure) - Physician Notifications Discussed Care of Patient With: Wesly Alcala Time Discussed With Above Provider: 05:53 Instructed by Provider To: Other - 0553 - Patient's case was discussed with Dr. Alcala, Dr. Alcala accepts for admission. Discharge - Sign-Out/Discharge Documenting (check all that apply): Patient Departure - admit Patient Received Moderate/Deep Sedation with Procedure: No - Discharge Plan Condition: Fair Disposition: ADMITTED TO [facility] Referrals: Hang Denny MD [Primary Care Provider] - - Attestation Statements Document Initiated by Scribe: Yes Documenting Scribe: TERESE FRAIAS Provider For Whom Scribe is Documenting (Include Credential): SOUMYA WEI MD Scribe Attestation: ITERESE, scribed for SOUMYA WEI MD on 04/09/19 at 0640. Status of Scribe Document: Ready
[2019-04-09] MEDS ORDERED: Albuterol/Ipratropium NEB.SOL* Albuterol 2.5 MG/Ipratropium 0.5 MG 3 ML INH ONE (04:53)
[2019-04-09] MEDS: Albuterol 2.5 MG/3 ML NEB.SOL* (0.083%) INH SCH ×2 (05:11→05:24)
[2019-04-09] MEDS ORDERED: Furosemide IV* 10 MG/ML VIAL (40 MG) IV SLOW PU ONE (05:30)
[2019-04-09 05:31] LABS: ABS Eosinophils 0.2 10^3/ul (0-0.6); ABS Lymphocytes 0.4 10^3/ul (1.0-4.8); ABS Monocytes 0.7 10^3/ul (0-0.8); ABS Neutrophils 2.9 10^3/ul (1.5-7.7); Eosinophil % 4.5 %; Hematocrit 38 % (42-52); Hemoglobin 12.7 g/dL (14.0-18.0); Mean Corpuscular HGB Conc 34 g/dL (31-36); Mean Corpuscular Hemoglobin 31 pg (27-31); Mean Corpuscular Volume 93 fL (80-94); Mean Platelet Volume 8.8 fL (7.4-10.4); Nucleated Red Blood Cells % 0.1; Platelet Count 151 10^3/uL (150-450); Red Blood Count 4.04 10^6 /uL (4.18-5.48); Red Cell Distribution Width 16 % (10-15); White Blood Count 4.2 10^3/uL (3.5-10.8)
[2019-04-09] MEDS ORDERED: Nitro 2% OINT* (Nitroglycerin) 1 INCH/PAK PAK TOPICAL ONE (05:31)
[2019-04-09 05:37] LABS: Activated Partial Thrombo Time 59.7 seconds (26.0-38.0); INR 3.85 (0.82-1.09)
[2019-04-09 05:50] LABS: Albumin 3.1 g/dL (3.2-5.2); BUN/Creatinine Ratio 22.4 (8-20); Calcium 8.3 mg/dL (8.6-10.3); EGFR African American 62.7 (>60); EGFR Non-African American 51.8 (>60); Globulin 3.4 g/dL (2-4); Total Protein 6.5 g/dL (6.4-8.9)
[2019-04-09 05:51] LABS: Albumin/Globulin Ratio 0.9 (1-3); C Reactive Protein 15.27 mg/L (<8.01); Total Bilirubin 0.4 mg/dL (0.2-1.0)
[2019-04-09 05:52] LABS: Troponin I 0.03 ng/mL (<0.04)
[2019-04-09] MEDS ORDERED: Carvedilol TAB* 6.25 MG PO ONE (09:58)
[2019-04-09] MEDS ORDERED: amLODIPine TAB* 5 MG PO ONE (09:59)
[2019-04-09] MEDS ORDERED: Acetaminophen TAB* 325 MG PO PRN (10:00)
[2019-04-09] MEDS ORDERED: Albuterol 2.5 MG/3 ML NEB.SOL* (0.083%) INH PRN (10:00)
[2019-04-09] MEDS: Aspirin EC TAB* 81 MG TAB.EC PO SCH (12:32)
[2019-04-09] MEDS: Potassium Chlor TAB* 20 MEQ TAB.ER PO SCH (12:32)
--- NOTE | 2019-04-09 13:06 | HP ---
CC: [facility] * HISTORY AND PHYSICAL: DATE OF ADMISSION: 04/09/19 PRIMARY CARE PROVIDER: Tessy Oseguera. ATTENDING PHYSICIAN WHILE IN THE HOSPITAL: Dr. Nura Wall * (dictated by Nicole Mathis NP) CHIEF COMPLAINT: Shortness of breath. HISTORY OF PRESENT ILLNESS: Mr. Orozco is a 78-year-old male with past medical history of mitral valve replacement with a bioprosthetic valve in December 2017, pacemaker with replacement in December 2018, who presented to the emergency room with shortness of breath. The patient reports that he developed cough and congestion on Friday and felt poorly Friday and Friday but denied any fever or chills. He states on , he felt a lot better and was back to his baseline and then woke up Friday morning at approximately 2 a.m. with shortness of breath, unable to catch his breath. He denies any recent weight gain. He denies the need increased use of pillows to sleep. He does report mild swelling to bilateral lower extremities but not more than baseline. The patient does report that he followed up with his global commodity manager, Dr. Denny, approximately 3 weeks ago and at that time, his diuretics were decreased from 40 mg of Lasix daily to 40 mg 3 times a week and 20 mg 4 days a week. He denies any fever, unintended weight loss, or chest pain. He does report mild edema to bilateral lower extremities. He does report a productive cough with pale sputum, no hemoptysis. He did report shortness of breath, unable to catch his breath that started approximately 2 a.m. He denied any nausea, vomiting, diarrhea, abdominal pain, gross hematuria or dysuria. Denied any focal weakness , sensory loss, dysphagia, arthralgias, myalgias, rashes, lesions or open sores. Denied any psychosis or anxiety. While in the emergency room, the patient had routine lab work drawn. He was given Lasix 40 mg IV and nitroglycerin paste to the chest. He had a chest x- ray that showed findings consistent with pulmonary vascular congestion, pulmonary edema and a small pleural effusion. Due to the patient's shortness of breath and chest x-ray findings, we were asked to see and evaluate the patient for admission. PAST MEDICAL HISTORY: Significant for: 1. Mitral regurgitation, status post mitral valve replacement with a bioprosthetic valve in December 2017. 2. Hypertension. 3. Hyperlipidemia. 4. History of CVA with mild left hand weakness, residual. PAST SURGICAL HISTORY: 1. Mitral valve replacement x3, last valve replacement was in December 2017. 2. Pacemaker placement x2, last was in December 2018. 3. Tonsillectomy. MEDICATIONS: Home medications include: 1. Carvedilol 25 mg p.o. b.i.d. 2. Lasix 40 mg 3 days a week, 20 mg 4 days a week. 3. Amlodipine 5 mg p.o. daily. 4. Colace. 5. Aspirin 81 mg p.o. daily. 6. Multivitamin one tab p.o. daily. 7. Fish oil 1000 mg p.o. b.i.d. 8. Coumadin 9 mg 4 days a week, 5 mg 2 days a week and 4 mg one day a week. 9. Atorvastatin 40 mg p.o. daily. 10. Potassium 10 mEq p.o. daily. ALLERGIES: ERYTHROMYCIN and VASOTEC. FAMILY HISTORY: Mother with cerebral hemorrhage and at the age of 59, no diabetes or cancer. SOCIAL HISTORY: The patient reports he quit smoking 20 years ago. Prior to that, he smoked three quarters of a pack per day for approximately 30 years. He does report one drink daily. He denies any illicit drug use. He is retired. Surrogate decision maker in the event he is unable to make his own decisions is his , Nafisa. He is a full code. REVIEW OF SYSTEMS: A 14-point review of systems was completed and all pertinent positives are mentioned in the HPI, otherwise were negative. PHYSICAL EXAMINATION GENERAL: Mr. Orozco is a 78-year-old male, he is alert and oriented, resting on the stretcher in the emergency room. He is not in any acute distress. He is well nourished and well developed. Color is pink. VITAL SIGNS: Blood pressure 164/61, heart rate 70, respirations 20, O2 saturation 94% on 2 L nasal cannula, temperature was 99.3. HEENT: Head is atraumatic, normocephalic. Eyes: EOMs are intact. Sclerae anicteric and not pale. Oral mucosa appeared to be moist. NECK: Supple. LUNGS: He does have crackles in bilateral bases, left greater than right. A few scattered rhonchi. CARDIAC: S1, S2. Regular rate and rhythm. No rubs or gallops. ABDOMEN: Soft and nontender. Bowel sounds present x4. EXTREMITIES: He is able to move all 4 extremities. There is no clubbing or cyanosis. Pedal pulses are +2 bilaterally. He does have +1 pitting edema noted to bilateral lower extremities. He does have a scabbed area noted to bilateral shins without surrounding erythema. NEUROLOGIC: He is awake, alert and oriented x3. Speech is clear. Thought process is intact. There are no gross focal deficits. SKIN: He does have scabbed areas noted to bilateral shins, no surrounding erythema or swelling. DIAGNOSTIC STUDIES/LAB DATA: WBCs are 4.2, RBCs 4.04, hemoglobin 12.7, hematocrit 38, platelet count is 151, INR is 3.85. Sodium 137, potassium 4.0, chloride 106, carbon dioxide 25, anion gap is 6, BUN 30, creatinine 1.34, glucose of 104, calcium 8.3, AST 29, ALT 20, alkaline phosphatase is 60, troponin was 0.03, C- reactive protein 15.27, BNP was 525. Chest x-ray showed pulmonary vascular congestion and interstitial edema, cardiomegaly appears to be increased. There is a palpable small left pleural effusion. Negative for pneumothorax. He had an electrocardiogram which showed a paced rhythm at a rate of 70. With comparison to an EKG from 01/27/[address] Denny's office appears similar. EKG pattern is similar. The patient did have a transthoracic echocardiogram on 02/08/19, which showed mild concentric hypertrophy with visual EF of 55 to 60%, abnormal septal wall due to postoperative valve Doppler evidence of grade 2 diastolic dysfunction, mild aortic valve stenosis, trace mitral valve stenosis, moderate pulmonary hypertension. ASSESSMENT AND PLAN: Mr. Orozco is a 78-year-old male with past medical history significant for mitral valve replacement with a bioprosthetic valve in December 2017 , hypertension, hyperlipidemia, history of cerebrovascular accident, who presented to the emergency room with acutely worsening shortness of breath at approximately 2 a.m. this morning. He is found to have congestive heart failure. He will be admitted for: 1. Acute diastolic congestive heart failure: The patient did receive Lasix 40 mg IV in the emergency room and nitro paste to the chest. We will give a second dose of Lasix 20 mg IV this evening and we will reevaluate fluid status in the a.m. and dose Lasix based on his fluid volume. I will place the patient on strict I and O's and daily weight. 2. Hypertension: The patient will continue on carvedilol and amlodipine as previously prescribed. 3. Hyperlipidemia: He will continue his atorvastatin as previously prescribed. 4. History of cerebrovascular accident: He will continue on aspirin and atorvastatin, not an acute issue. 5. Bioprosthetic mitral valve: The patient does take Coumadin. He does have a supratherapeutic INR of 3.85 and I am going to hold his Coumadin today and repeat his INR in the morning and resume Coumadin based on INR findings. 6. FEN: He can have a heart healthy caffeine okay diet. 7. Code status: Full code. 8. DVT prophylaxis: The patient does take Coumadin, on hold due to supratherapeutic INR of 3.85. TIME SPENT: Time spent on this admission was 60 minutes, greater than half that time was spent at the bedside reviewing events leading thus far to this hospitalization, performing physical exam and reviewing my plan of care. I have discussed this with my attending, Dr. Nura Wall, he is in agreement with my plan. NICOLE MATHIS, OLVIN [id number]/CPS #: [id number] MTDD
[2019-04-09] MEDS ORDERED: Furosemide IV* 10 MG/ML 2 ML VIAL (20 MG) IV ONE (17:00)
[2019-04-09] MEDS ORDERED: WARFARIN - No Order Today* 1 NOTE MISC FOLLOW UP ONE (17:10)
[2019-04-09] MEDS ORDERED: Atorvastatin* 40 MG TAB PO SCH (21:00)
[2019-04-09] MEDS: Carvedilol TAB* 25 MG PO SCH (22:10)
[2019-04-10 06:54] LABS: ABS Eosinophils 0.2 10^3/ul (0-0.6); ABS Lymphocytes 0.5 10^3/ul (1.0-4.8); ABS Monocytes 0.6 10^3/ul (0-0.8); Hematocrit 36 % (42-52); Hemoglobin 12.3 g/dL (14.0-18.0); Lymphocyte % 14.1 %; Mean Corpuscular HGB Conc 34 g/dL (31-36); Mean Corpuscular Hemoglobin 32 pg (27-31); Mean Corpuscular Volume 93 fL (80-94); Mean Platelet Volume 8.9 fL (7.4-10.4); Nucleated Red Blood Cells % 0.1; Platelet Count 151 10^3/uL (150-450); Red Cell Distribution Width 16 % (10-15); White Blood Count 3.3 10^3/uL (3.5-10.8)
[2019-04-10 06:56] LABS: INR 2.49 (0.82-1.09)
[2019-04-10 07:11] LABS: Calcium 8.6 mg/dL (8.6-10.3)
[2019-04-10 07:17] LABS: BUN/Creatinine Ratio 23.8 (8-20); EGFR African American 67.3 (>60); EGFR Non-African American 55.6 (>60)
[2019-04-10] MEDS ORDERED: Furosemide IV* 10 MG/ML VIAL (40 MG) IV SLOW PU ONE (08:56)
[2019-04-10] MEDS ORDERED: amLODIPine TAB* 5 MG PO SCH (09:00)
[2019-04-10] MEDS ORDERED: Multivitamins/Minerals TAB PO SCH (09:00)
[2019-04-10] MEDS: Carvedilol TAB* 25 MG PO SCH (09:30)
[2019-04-10] MEDS: Potassium Chlor TAB* 20 MEQ TAB.ER PO SCH (09:30)
[2019-04-10] MEDS: Aspirin EC TAB* 81 MG TAB.EC PO SCH (09:30)
[2019-04-10 11:45] VITALS: BP 97/46
--- NOTE | 2019-04-10 20:52 | DS ---
CC: [facility]; Dr. Hang Denny * DISCHARGE SUMMARY: DATE OF ADMISSION: 04/09/19 DATE OF DISCHARGE: 04/10/19 PRIMARY CARE PROVIDER: [facility]. OUTPATIENT GROOVER AND TURNER: Dr. Hang Denny. MY ATTENDING WHILE IN THE HOSPITAL: Dr. Connie Pichardo.* (DICTATED BY PELON RUIZ) PRIMARY DISCHARGE DIAGNOSIS: Heart failure, preserved ejection fraction, exacerbation. SECONDARY DISCHARGE DIAGNOSES: 1. Mitral regurgitation status post mitral valve replacement. 2. Hypertension. 3. Hyperlipidemia. 4. History of cerebrovascular accident. 5. Pacemaker implantation. STUDIES DONE WHILE IN THE HOSPITAL: Chest x-ray from a 04/09/19 read as pulmonary vascular congestion, interstitial edema, cardiomegaly appears increased. EKG shows left bundle-branch block sinus rhythm prolonged RI interval, left atrial enlargement, difficult to interpret ST segment, compared to previous exam left bundle-branch block is new. EKG is consistent with most recent available EKG from 01/27/19 consistently functioning pacemaker. MEDICATIONS AT DISCHARGE: 1. Atorvastatin 40 mg p.o. daily. 2. Aspirin 81 mg p.o. daily. 3. Multivitamin 1 tab p.o. daily. 4. [place] 3 Fatty Acids 2000 mg p.o. b.i.d. 5. Carvedilol 25 mg p.o. b.i.d.. 6. Amlodipine 5 mg p.o. daily. 7. Potassium 10 mEq p.o. daily. 8. Warfarin 4 mg Friday at 1500. 9. Warfarin 9 mg p.o. Friday, Friday, , and Friday at 5 p.m. 10. Warfarin 5 mg p.o. Friday 5 p.m. 11. Tylenol 650 mg p.o. q.4 hours as needed. 12. Furosemide 40 mg p.o. b.i.d. x7 days then resuming daily. New medication on discharge: Furosemide 40 mg b.i.d. Medications discontinued on discharge: Furosemide 40 mg alternating with 20 mg every other day. HOSPITAL COURSE: This is a brief summary of the patient's presentation. For more details, please see history and physical from Nicole Mathis NP on 04/09. In brief, the patient is a 78-year-old male with a past medical history significant for the above, who presents to the emergency department with increasing shortness of breath. The patient had developed a cough and congestion on Friday and Friday, which got better and then he woke up at 2 a.m. on Friday with severe shortness of breath. His swelling in his legs has been getting somewhat worse. The patient had recently had his diuretics decreased by his primary awning hanger supervisor. The patient had a cough. The patient had in the emergency department was found to have findings consistent with pulmonary vascular congestion. The patient had 3 negative troponins, BNP that was significantly elevated consistently when he was previously admitted for a malfunctioning mitral valve. The patient's creatinine was close to his baseline. The patient's INR was supratherapeutic. The patient will have minimally elevated CRP. The patient was admitted to the hospital given to 2 doses of IV Lasix initially which he said greatly improved with breathing, greatly improved his lower extremity edema. He said he felt great. The patient needed oxygen intermittently while in the hospital. The patient, however, did not feel increasingly short of breath. The patient has no other complaints and was anxious for discharge on 04/10/19. I discussed with the patient that he may benefit from staying another day for continued monitored diuresis and he states that he understood that may be beneficial, but he very much wanted to go home. The patient was stable and amenable for discharge on 04/09/19. PHYSICAL EXAMINATION ON DAY OF DISCHARGE: General: The patient is a 78-year- old male who appears his stated age and sitting comfortably in bed, in no acute distress. Vital Signs: At the time of evaluation, temperature 98.3, pulse rate 70, respiratory rate 22, oxygen saturation 93% on room air, blood pressure 137/53. HEENT: Head normocephalic, atraumatic. Sclerae anicteric. No conjunctival injection. Nasal and oral mucosa moist. No pharyngeal erythema, postnasal drip, or exudate. Neck: Supple, nontender. No lymphadenopathy. No carotid bruit auscultated. No JVD. Cardiac: Regular rate and rhythm. No clicks, murmurs, gallops, or rubs. Pulses 2+ in dorsalis pedis, posterior tibialis, and radial areas, 1+ bilateral lower extremity edema noted. Respiratory: Slight crackles in bilateral lung bases. No other adventitious lung sounds. Abdomen: Soft, nontender, nondistended. Bowel sounds present, normoactive in all 4 quadrants. No hepatosplenomegaly. No abdominal bruits auscultated. No hepatojugular reflux. Genitourinary: No suprapubic or CVA tenderness. Skin: Clean, dry, and intact. No rash. Neuro: Cranial nerves II through XII grossly intact. No focal deficits noted on this exam. Alert and oriented x3. Psychiatric: Pleasant and cooperative. DISCHARGE PLAN: The patient will be discharged to home. The patient will have increased diuresis with 40 mg b.i.d. of Lasix for 1 week. The patient will then reduce it to 40 mg p.o. daily, which he was previously on. The patient should follow with his primary care provider within 1 week for repeat check of his electrolytes and to ensure continued improvement. The patient was hypoxic while in the hospital. The patient was given oxygen for presumably a short period of time while he continues his diuresis at home. The patient mainly needs it while ambulating and encouraged to use it for this purpose. He is also encouraged to purchase a pulse oximeter and attempt to wean off his oxygen if he has adequate saturations with walking off oxygen. The patient should return to the hospital for passing out, severe shortness of breath, chest pain or other alarming symptoms. The patient is to follow up with awning hanger supervisor in 1 month for specific cardiac management to discuss the changes to his diuretics. TIME SPENT: Approximately 60 minutes was spent on this discharge, 30 of which spent [id number] with the patient obtaining history and physical and discussing the treatment plan. PELON RUIZ [id number] #: [id number] [place]
== END 2019-04-10 15:56 | disposition home or self-care (01) ==
LOC: ED 04:09 → MEDTELE 12:01
PROVIDERS: ADMIT Internal Medicine; ATTEND Internal Medicine
DX: I11.0 Hypertensive heart disease with heart failure (principal); I50.30 Unspecified diastolic (congestive) heart failure; E78.5 Hyperlipidemia, unspecified; R06.02 Shortness of breath; Z86.73 Personal history of transient ischemic attack (TIA), and cerebral infarction without residual deficits; Z79.01 Long term (current) use of anticoagulants; I10 Essential (primary) hypertension; E78.00 Pure hypercholesterolemia, unspecified; Z95.0 Presence of cardiac pacemaker; Z95.4 Presence of other heart-valve replacement; Z87.891 Personal history of nicotine dependence; Z79.82 Long term (current) use of aspirin; Z79.899 Other long term (current) drug therapy; R94.31 Abnormal electrocardiogram [ECG] [EKG]
CPT/HCPCS: 36415; 71045; 80048; 80053; 83880; 84484; 85025; 85610; 85730; 86140; 93005; 96374; 96376; 99284; A9270-GY; G0378; J1940

== ENCOUNTER 2020-03-29 12:25 | Inpatient (IN) ==
[2020-03-29 13:47] LABS: ABS Nucleated RBC 0.1 10^3/ul; Nucleated Red Blood Cells % 1.2
[2020-03-29 13:48] LABS: Hematocrit 18 % (42-52); Hemoglobin 5.6 g/dL (14.0-18.0); Mean Corpuscular HGB Conc 31 g/dL (31-36); Mean Corpuscular Hemoglobin 27 pg (27-31); Mean Corpuscular Volume 88 fL (80-94); Mean Platelet Volume 8.4 fL (7.4-10.4); Platelet Count 429 10^3/uL (150-450); Red Blood Count 2.04 10^6 /uL (4.18-5.48); Red Cell Distribution Width 18 % (10-15); White Blood Count 5.6 10^3/uL (3.5-10.8)
[2020-03-29 13:58] LABS: ALT 13 U/L (7-52); AST 18 U/L (13-39); Albumin 3.1 g/dL (3.2-5.2); Albumin/Globulin Ratio 0.9 (1-3); Alkaline Phosphatase 65 U/L (34-104); Anion Gap 7 mmol/L (2-11); BUN/Creatinine Ratio 29.3 (8-20); Blood Urea Nitrogen 58 mg/dL (6-24); CO2 Carbon Dioxide 28 mmol/L (22-32); Calcium 8.4 mg/dL (8.6-10.3); Chloride 98 mmol/L (101-111); EGFR African American 39.9 (>60); EGFR Non-African American 32.9 (>60); Globulin 3.5 g/dL (2-4); Glucose 104 mg/dL (70-100); Potassium 4.9 mmol/L (3.5-5.0); Sodium 133 mmol/L (135-145); Total Protein 6.6 g/dL (6.4-8.9)
[2020-03-29 14:00] LABS: Troponin I 0.01 ng/mL (<0.03)
[2020-03-29 15:25] LABS: Polychromasia 1+
[2020-03-29 15:28] LABS: ABS Eosinophils 0.2 10^3/ul (0-0.6); ABS Neutrophils 4.5 10^3/ul (1.5-7.7)
[2020-03-29] MEDS ORDERED: Furosemide 20 mg/2 ml IV VIAL IV ONE (16:22)
[2020-03-29 17:43] LABS: INR 3.36 (0.82-1.09)
[2020-03-29] MEDS: Pantoprazole VIAL 40 MG VIAL IV SCH (17:58)
[2020-03-29 18:28] LABS: Total Iron Binding Capacity 368 mcg/dL (250-450); Transferrin 263 mg/dL (203-362)
[2020-03-29 18:47] LABS: Ferritin 31.4 ng/mL (24-336)
[2020-03-29 18:54] LABS: % Iron Saturation 5 % (15-55); Iron < 20 ug/dL (50-212); Unsaturated Iron Binding < 353 ug/dL
[2020-03-29] MEDS ORDERED: Furosemide 40 mg/4 ml IV VIAL IV SLOW PU ONE (19:00)
[2020-03-30 02:43] LABS: Hematocrit 22 % (42-52)
[2020-03-30] MEDS: Pantoprazole VIAL 40 MG VIAL IV SCH ×2 (04:55→17:29)
[2020-03-30 05:11] LABS: INR 3.14 (0.82-1.09)
[2020-03-30 05:18] LABS: Hematocrit 22 % (42-52); Hemoglobin 7.1 g/dL (14.0-18.0); Mean Corpuscular HGB Conc 32 g/dL (31-36); Mean Corpuscular Hemoglobin 28 pg (27-31); Mean Corpuscular Volume 86 fL (80-94); Mean Platelet Volume 7.9 fL (7.4-10.4); Platelet Count 379 10^3/uL (150-450); Red Blood Count 2.57 10^6 /uL (4.18-5.48); Red Cell Distribution Width 17 % (10-15); White Blood Count 6.9 10^3/uL (3.5-10.8)
[2020-03-30 05:23] LABS: BUN/Creatinine Ratio 27.7 (8-20); Calcium 7.9 mg/dL (8.6-10.3); EGFR African American 38.9 (>60); EGFR Non-African American 32.2 (>60); Potassium 4.6 mmol/L (3.5-5.0)
[2020-03-30 08:24] LABS: Polychromasia 1+
[2020-03-30 08:25] LABS: ABS Eosinophils 0.1 10^3/ul (0-0.6)
[2020-03-30] MEDS ORDERED: fentaNYL 100 mcg/2 ml 50 MCG/ML VIAL ONE (08:49)
[2020-03-30] MEDS ORDERED: Midazolam 10 mg/10 ml VIAL 1 mg/ml 10 ml VIAL (10 mg) ONE (08:49)
[2020-03-30] MEDS: Multivitamins/Minerals TAB PO SCH (10:52)
[2020-03-30] MEDS ORDERED: Furosemide 40 mg/4 ml IV VIAL IV SLOW PU ONE (13:02)
[2020-03-30 15:17] LABS: C Reactive Protein 5.98 mg/L (<8.01)
[2020-03-30 19:17] LABS: Erythrocyte Sed Rate 28 mm/Hr (0-19)
[2020-03-30] MEDS ORDERED: Iron Sucrose 200 MG in NS 0.9% 100 ml BAG 100 ML IVPB ONE (20:00)
[2020-03-30 21:11] LABS: Hematocrit 28 % (42-52); Hemoglobin 9.1 g/dL (14.0-18.0)
[2020-03-30 22:11] LABS: Urine Appearance Cloudy; Urine Bilirubin Negative (Negative); Urine Blood 2+ (Negative); Urine Color Yellow; Urine Glucose Negative (Negative); Urine Ketones Negative (Negative); Urine Nitrite Negative (Negative); Urine Protein 2+(100 mg/dL) (Negative); Urine Urobilinogen Negative (Negative)
[2020-03-30] MEDS ORDERED: oxyCODONE/Acetamin 5/325 mg TAB PO ONE (22:15)
[2020-03-30 22:18] LABS: Urine Bacteria 1+ (Absent); Urine Red Blood Cell 2+(6-10/hpf) (Absent); Urine White Blood Cell 3+(>20/hpf) (Absent)
[2020-03-31 01:25] LABS: Hematocrit 27 % (42-52)
[2020-03-31 04:56] LABS: ABS Eosinophils 0.2 10^3/ul (0-0.6); ABS Lymphocytes 0.3 10^3/ul (1.0-4.8); ABS Neutrophils 5.9 10^3/ul (1.5-7.7); Eosinophil % 3.3 %; Hematocrit 27 % (42-52); Hemoglobin 8.7 g/dL (14.0-18.0); Mean Corpuscular HGB Conc 33 g/dL (31-36); Mean Corpuscular Hemoglobin 28 pg (27-31); Mean Corpuscular Volume 86 fL (80-94); Mean Platelet Volume 7.9 fL (7.4-10.4); Nucleated Red Blood Cells % 0.5; Platelet Count 352 10^3/uL (150-450); Red Blood Count 3.11 10^6 /uL (4.18-5.48); Red Cell Distribution Width 17 % (10-15); White Blood Count 7.5 10^3/uL (3.5-10.8)
[2020-03-31 04:58] LABS: INR 2.25 (0.82-1.09)
[2020-03-31 05:12] LABS: BUN/Creatinine Ratio 28.1 (8-20); EGFR African American 41.3 (>60); EGFR Non-African American 34.1 (>60); Potassium 4.5 mmol/L (3.5-5.0)
[2020-03-31] MEDS: Pantoprazole VIAL 40 MG VIAL IV SCH ×2 (05:30→18:13)
[2020-03-31] MEDS ORDERED: Heparin DRIP 25,000 UNITS BAG 25,000 UNITS/500 ML BAG IV SCH (08:15)
[2020-03-31] MEDS: Multivitamins/Minerals TAB PO SCH (08:27)
[2020-03-31] MEDS ORDERED: Heparin 5000 UNITS/ML 1 mL VIAL IV SCH (09:00)
[2020-03-31] MEDS: Heparin DRIP 25,000 UNITS BAG 25,000 UNITS/500 ML BAG IV SCH (09:46)
[2020-03-31] MEDS ORDERED: Flumazenil 0.5 mg/5 ml 0.1 MG/ML 5 ml VIAL ONE (10:46)
[2020-03-31] MEDS ORDERED: Midazolam 5 mg/5 ml VIAL 1 mg/ml 5 ml VIAL (5 mg) ONE (10:46)
[2020-03-31] MEDS ORDERED: fentaNYL 100 mcg/2 ml 50 MCG/ML VIAL ONE (10:46)
[2020-03-31] MEDS ORDERED: Naloxone 0.4 mg VIAL 0.4 mg/ml 1 ml VIAL ONE (10:46)
[2020-03-31 16:16] LABS: Hematocrit 29 % (42-52); Hemoglobin 9.4 g/dL (14.0-18.0)
[2020-03-31] MEDS ORDERED: Furosemide 20 mg/2 ml IV VIAL IV ONE (17:20)
[2020-03-31 18:22] LABS: Corrected Retic Count 1.3 % (0.5-1.5); Hematocrit for Retic CNT 27 % (42-52); Immature Retic Fraction 0.55; RBC Retic Count 3.07 10^6/uL (4.18-5.48)
[2020-03-31 22:39] LABS: Hematocrit 28 % (42-52); Hemoglobin 9.1 g/dL (14.0-18.0)
[2020-04-01] MEDS: Heparin DRIP 25,000 UNITS BAG 25,000 UNITS/500 ML BAG IV SCH (02:36)
[2020-04-01 06:46] LABS: INR 1.72 (0.82-1.09)
[2020-04-01 06:55] LABS: BUN/Creatinine Ratio 28.7 (8-20); Calcium 7.9 mg/dL (8.6-10.3); EGFR African American 44.2 (>60); EGFR Non-African American 36.5 (>60); Potassium 4.8 mmol/L (3.5-5.0)
[2020-04-01] MEDS: Pantoprazole VIAL 40 MG VIAL IV SCH ×2 (07:20→17:29)
[2020-04-01 07:25] LABS: ABS Eosinophils 0.2 10^3/ul (0-0.6); ABS Lymphocytes 0.6 10^3/ul (1.0-4.8); ABS Monocytes 0.8 10^3/ul (0-0.8); Eosinophil % 4.3 %; Hematocrit 26 % (42-52); Hemoglobin 8.5 g/dL (14.0-18.0); Lymphocyte % 11.1 %; Mean Corpuscular HGB Conc 33 g/dL (31-36); Mean Corpuscular Hemoglobin 28 pg (27-31); Mean Corpuscular Volume 87 fL (80-94); Mean Platelet Volume 8.2 fL (7.4-10.4); Nucleated Red Blood Cells % 0.5; Platelet Count 325 10^3/uL (150-450); Red Blood Count 2.99 10^6 /uL (4.18-5.48); Red Cell Distribution Width 18 % (10-15); White Blood Count 5.7 10^3/uL (3.5-10.8)
[2020-04-01] MEDS ORDERED: Furosemide 20 mg/2 ml IV VIAL IV ONE ×2 (08:16→16:00)
[2020-04-01] MEDS: Multivitamins/Minerals TAB PO SCH (09:04)
[2020-04-01] MEDS ORDERED: Iron Sucrose 200 MG in NS 0.9% 100 ml BAG 100 ML IVPB ONE (10:00)
[2020-04-02 04:54] LABS: ABS Eosinophils 0.2 10^3/ul (0-0.6); ABS Lymphocytes 0.6 10^3/ul (1.0-4.8); ABS Monocytes 0.9 10^3/ul (0-0.8); Eosinophil % 3.5 %; Hematocrit 24 % (42-52); Hemoglobin 7.9 g/dL (14.0-18.0); Lymphocyte % 10.1 %; Mean Corpuscular HGB Conc 33 g/dL (31-36); Mean Corpuscular Hemoglobin 28 pg (27-31); Mean Corpuscular Volume 86 fL (80-94); Mean Platelet Volume 7.9 fL (7.4-10.4); Nucleated Red Blood Cells % 0.3; Platelet Count 309 10^3/uL (150-450); Red Blood Count 2.82 10^6 /uL (4.18-5.48); Red Cell Distribution Width 18 % (10-15); White Blood Count 5.7 10^3/uL (3.5-10.8)
[2020-04-02 05:00] LABS: Activated Partial Thrombo Time 59.5 seconds (26.0-38.0); INR 1.28 (0.82-1.09)
[2020-04-02 05:03] LABS: Calcium 8.1 mg/dL (8.6-10.3); EGFR African American 46.9 (>60); EGFR Non-African American 38.8 (>60); Potassium 4.6 mmol/L (3.5-5.0)
[2020-04-02] MEDS: Pantoprazole VIAL 40 MG VIAL IV SCH ×2 (05:24→16:48)
[2020-04-02] MEDS: Heparin DRIP 25,000 UNITS BAG 25,000 UNITS/500 ML BAG IV SCH (07:39)
[2020-04-02] MEDS: Multivitamins/Minerals TAB PO SCH (09:14)
[2020-04-02 13:39] LABS: Polychromasia 1+
[2020-04-02] MEDS ORDERED: Furosemide 40 mg/4 ml IV VIAL IV SLOW PU ONE (18:30)
[2020-04-03] MEDS: Pantoprazole VIAL 40 MG VIAL IV SCH ×3 (05:22→18:08)
[2020-04-03 06:49] LABS: BUN/Creatinine Ratio 31.6 (8-20); Calcium 8.1 mg/dL (8.6-10.3); EGFR African American 52.9 (>60); EGFR Non-African American 43.7 (>60); Potassium 4.7 mmol/L (3.5-5.0)
[2020-04-03 07:06] LABS: ABS Eosinophils 0.2 10^3/ul (0-0.6); ABS Lymphocytes 0.7 10^3/ul (1.0-4.8); ABS Monocytes 0.8 10^3/ul (0-0.8); ABS Neutrophils 3.3 10^3/ul (1.5-7.7); Eosinophil % 3.9 %; Hematocrit 25 % (42-52); Hemoglobin 8.1 g/dL (14.0-18.0); Lymphocyte % 14.6 %; Mean Corpuscular HGB Conc 32 g/dL (31-36); Mean Corpuscular Hemoglobin 28 pg (27-31); Mean Corpuscular Volume 86 fL (80-94); Mean Platelet Volume 7.8 fL (7.4-10.4); Nucleated Red Blood Cells % 0.2; Platelet Count 280 10^3/uL (150-450); Red Blood Count 2.92 10^6 /uL (4.18-5.48); Red Cell Distribution Width 18 % (10-15); White Blood Count 5.1 10^3/uL (3.5-10.8)
[2020-04-03] MEDS: Multivitamins/Minerals TAB PO SCH (08:31)
[2020-04-03] MEDS: Heparin DRIP 25,000 UNITS BAG 25,000 UNITS/500 ML BAG IV SCH (09:20)
[2020-04-03] MEDS ORDERED: PEG 3000 GI LAVAGE 1 GALLON PO ONE (15:00)
[2020-04-04] MEDS: Pantoprazole VIAL 40 MG VIAL IV SCH ×2 (05:16→18:31)
[2020-04-04 06:48] LABS: Hematocrit 25 % (42-52); Hemoglobin 8.2 g/dL (14.0-18.0); Mean Corpuscular HGB Conc 33 g/dL (31-36); Mean Corpuscular Hemoglobin 28 pg (27-31); Mean Corpuscular Volume 86 fL (80-94); Mean Platelet Volume 7.6 fL (7.4-10.4); Platelet Count 258 10^3/uL (150-450); Red Blood Count 2.93 10^6 /uL (4.18-5.48); Red Cell Distribution Width 18 % (10-15); White Blood Count 5.1 10^3/uL (3.5-10.8)
[2020-04-04 06:58] LABS: Calcium 7.9 mg/dL (8.6-10.3); EGFR Non-African American 57.1 (>60); Potassium 4.3 mmol/L (3.5-5.0)
[2020-04-04 08:25] LABS: ABS Eosinophils 0.1 10^3/ul (0-0.6); ABS Neutrophils 3.6 10^3/ul (1.5-7.7)
[2020-04-04] MEDS: Multivitamins/Minerals TAB PO SCH (10:19)
[2020-04-04] MEDS ORDERED: Midazolam 10 mg/10 ml VIAL 1 mg/ml 10 ml VIAL (10 mg) ONE (16:22)
[2020-04-04] MEDS ORDERED: fentaNYL 100 mcg/2 ml 50 MCG/ML VIAL ONE (16:22)
[2020-04-04] MEDS ORDERED: Ampicillin IV 1 GM VIAL ONE (16:39)
[2020-04-04] MEDS ORDERED: Ampicillin ADVAN 2 GM in NS 0.9% 100 ml BAG 100 ML IVPB ONE (17:00)
[2020-04-04] MEDS ORDERED: Heparin DRIP 25,000 UNITS BAG 25,000 UNITS/500 ML BAG IV SCH (18:00)
[2020-04-04 18:42] LABS: ABS Eosinophils 0.1 10^3/ul (0-0.6); ABS Lymphocytes 0.4 10^3/ul (1.0-4.8); ABS Monocytes 0.6 10^3/ul (0-0.8); ABS Neutrophils 3.5 10^3/ul (1.5-7.7); Eosinophil % 3.2 %; Hematocrit 28 % (42-52); Hemoglobin 8.9 g/dL (14.0-18.0); Mean Corpuscular HGB Conc 31 g/dL (31-36); Mean Corpuscular Hemoglobin 27 pg (27-31); Mean Corpuscular Volume 88 fL (80-94); Nucleated Red Blood Cells % 0.1; Platelet Count 267 10^3/uL (150-450); Red Blood Count 3.24 10^6 /uL (4.18-5.48); Red Cell Distribution Width 18 % (10-15); White Blood Count 4.6 10^3/uL (3.5-10.8)
[2020-04-04 18:56] LABS: EGFR African American 65.3 (>60)
[2020-04-04] MEDS: Heparin 5000 UNITS/ML 1 mL VIAL IV SCH (19:38)
[2020-04-04] MEDS: Heparin DRIP 25,000 UNITS BAG 25,000 UNITS/500 ML BAG IV SCH (19:38)
[2020-04-05 05:51] LABS: ABS Eosinophils 0.2 10^3/ul (0-0.6); ABS Lymphocytes 0.4 10^3/ul (1.0-4.8); ABS Monocytes 0.9 10^3/ul (0-0.8); ABS Neutrophils 3.7 10^3/ul (1.5-7.7); Eosinophil % 2.9 %; Hematocrit 24 % (42-52); Hemoglobin 7.8 g/dL (14.0-18.0); Lymphocyte % 8.4 %; Mean Corpuscular HGB Conc 33 g/dL (31-36); Mean Corpuscular Hemoglobin 29 pg (27-31); Mean Corpuscular Volume 87 fL (80-94); Mean Platelet Volume 8.2 fL (7.4-10.4); Nucleated Red Blood Cells % 0.1; Platelet Count 212 10^3/uL (150-450); Red Blood Count 2.72 10^6 /uL (4.18-5.48); Red Cell Distribution Width 18 % (10-15); White Blood Count 5.2 10^3/uL (3.5-10.8)
[2020-04-05 06:01] LABS: INR 1.14 (0.82-1.09)
[2020-04-05] MEDS: Pantoprazole VIAL 40 MG VIAL IV SCH ×2 (06:01→16:36)
[2020-04-05 06:07] LABS: Calcium 8.1 mg/dL (8.6-10.3); Potassium 4.6 mmol/L (3.5-5.0)
[2020-04-05 06:12] LABS: BUN/Creatinine Ratio 27.7 (8-20); EGFR Non-African American 48.7 (>60)
[2020-04-05] MEDS: Multivitamins/Minerals TAB PO SCH (08:11)
[2020-04-05] MEDS: Heparin DRIP 25,000 UNITS BAG 25,000 UNITS/500 ML BAG IV SCH (16:32)
[2020-04-05] MEDS: Heparin 5000 UNITS/ML 1 mL VIAL IV SCH (16:35)
[2020-04-05 18:07] LABS: Albumin 2.4 g/dL (3.4-4.7); Albumin/Globulin Ratio 0.69; Gamma Globulin 1.6 g/dL (0.6-1.6)
[2020-04-06] MEDS: Pantoprazole VIAL 40 MG VIAL IV SCH ×2 (04:38→17:17)
[2020-04-06 05:18] LABS: Hematocrit 23 % (42-52); Hemoglobin 7.4 g/dL (14.0-18.0); Mean Corpuscular HGB Conc 32 g/dL (31-36); Mean Corpuscular Hemoglobin 28 pg (27-31); Mean Corpuscular Volume 87 fL (80-94); Platelet Count 181 10^3/uL (150-450); Red Blood Count 2.63 10^6 /uL (4.18-5.48); Red Cell Distribution Width 19 % (10-15); White Blood Count 4.7 10^3/uL (3.5-10.8)
[2020-04-06 05:37] LABS: BUN/Creatinine Ratio 27.6 (8-20); Calcium 8.6 mg/dL (8.6-10.3); EGFR African American 57.1 (>60); EGFR Non-African American 47.2 (>60); Potassium 4.8 mmol/L (3.5-5.0)
[2020-04-06 05:43] LABS: Activated Partial Thrombo Time 66.4 seconds (26.0-38.0); INR 1.16 (0.82-1.09)
[2020-04-06 07:22] LABS: ABS Eosinophils 0.2 10^3/ul (0-0.6); ABS Lymphocytes 0.5 10^3/ul (1.0-4.8); ABS Monocytes 0.8 10^3/ul (0-0.8); ABS Neutrophils 3.3 10^3/ul (1.5-7.7); Eosinophil % 3.3 %; Lymphocyte % 10.6 %
[2020-04-06] MEDS: Multivitamins/Minerals TAB PO SCH (09:21)
[2020-04-06] MEDS: Heparin DRIP 25,000 UNITS BAG 25,000 UNITS/500 ML BAG IV SCH (10:25)
[2020-04-06 14:19] LABS: Albumin 64 %; Albumin/Globulin Ratio 1.76 %; Gamma Globulin 15 %; Total Protein(PEP) Urine 73 mg/dL
[2020-04-06] MEDS ORDERED: Furosemide 40 mg/4 ml IV VIAL IV ONE (15:33)
[2020-04-07] MEDS: Pantoprazole VIAL 40 MG VIAL IV SCH ×2 (05:02→17:23)
[2020-04-07] MEDS: Heparin DRIP 25,000 UNITS BAG 25,000 UNITS/500 ML BAG IV SCH ×2 (05:11→23:06)
[2020-04-07 05:37] LABS: ABS Eosinophils 0.1 10^3/ul (0-0.6); ABS Lymphocytes 0.4 10^3/ul (1.0-4.8); ABS Monocytes 0.6 10^3/ul (0-0.8); ABS Neutrophils 3.5 10^3/ul (1.5-7.7); Eosinophil % 3.2 %; Hematocrit 24 % (42-52); Hemoglobin 7.7 g/dL (14.0-18.0); Lymphocyte % 8.6 %; Mean Corpuscular HGB Conc 32 g/dL (31-36); Mean Corpuscular Hemoglobin 28 pg (27-31); Mean Corpuscular Volume 87 fL (80-94); Mean Platelet Volume 8.1 fL (7.4-10.4); Platelet Count 177 10^3/uL (150-450); Red Blood Count 2.75 10^6 /uL (4.18-5.48); Red Cell Distribution Width 18 % (10-15); White Blood Count 4.6 10^3/uL (3.5-10.8)
[2020-04-07 05:47] LABS: Activated Partial Thrombo Time 75.4 seconds (26.0-38.0); INR 1.29 (0.82-1.09)
[2020-04-07 05:50] LABS: Calcium 8.9 mg/dL (8.6-10.3)
[2020-04-07 05:52] LABS: Potassium 5.2 mmol/L (3.5-5.0)
[2020-04-07 05:56] LABS: BUN/Creatinine Ratio 27.8 (8-20); EGFR African American 54.5 (>60)
[2020-04-07] MEDS: Multivitamins/Minerals TAB PO SCH (08:42)
[2020-04-07] MEDS ORDERED: Furosemide 20 mg/2 ml IV VIAL IV ONE (09:38)
[2020-04-07 16:49] LABS: Albumin 2.9 g/dL (3.2-5.2); Albumin/Globulin Ratio 0.9 (1-3); Globulin 3.3 g/dL (2-4); Total Bilirubin 0.4 mg/dL (0.2-1.0); Total Protein 6.2 g/dL (6.4-8.9)
[2020-04-07] MEDS ORDERED: Albumin Human 25% 25 GM/100 ML BTL IV ONE (17:00)
[2020-04-07] MEDS: Furosemide 40 mg/4 ml IV VIAL IV SCH (19:14)
[2020-04-07] MEDS ORDERED: Furosemide 40 mg/4 ml IV VIAL IV SLOW PU ONE (22:30)
[2020-04-08 04:38] LABS: Urine Appearance Clear; Urine Bilirubin Negative (Negative); Urine Blood Negative (Negative); Urine Color Yellow; Urine Glucose Negative (Negative); Urine Ketones Negative (Negative); Urine Nitrite Negative (Negative); Urine Protein Negative (Negative); Urine Specific Gravity 1.005 (1.010-1.030); Urine Urobilinogen Negative (Negative)
[2020-04-08] MEDS: Pantoprazole VIAL 40 MG VIAL IV SCH ×2 (05:27→17:11)
[2020-04-08 05:57] LABS: ABS Eosinophils 0.1 10^3/ul (0-0.6); ABS Lymphocytes 0.4 10^3/ul (1.0-4.8); ABS Monocytes 0.6 10^3/ul (0-0.8); ABS Neutrophils 3.2 10^3/ul (1.5-7.7); Eosinophil % 3.4 %; Hematocrit 22 % (42-52); Hemoglobin 7.2 g/dL (14.0-18.0); Lymphocyte % 9.2 %; Mean Corpuscular HGB Conc 32 g/dL (31-36); Mean Corpuscular Hemoglobin 28 pg (27-31); Mean Corpuscular Volume 87 fL (80-94); Mean Platelet Volume 7.9 fL (7.4-10.4); Platelet Count 149 10^3/uL (150-450); Red Blood Count 2.56 10^6 /uL (4.18-5.48); Red Cell Distribution Width 19 % (10-15); White Blood Count 4.4 10^3/uL (3.5-10.8)
[2020-04-08 06:13] LABS: Activated Partial Thrombo Time 89.2 seconds (26.0-38.0); INR 1.42 (0.82-1.09)
[2020-04-08 06:13] LABS: BUN/Creatinine Ratio 30.6 (8-20); Calcium 9.2 mg/dL (8.6-10.3); EGFR African American 57.6 (>60); EGFR Non-African American 47.6 (>60)
[2020-04-08 06:22] LABS: Potassium 5.3 mmol/L (3.5-5.0)
[2020-04-08] MEDS: Multivitamins/Minerals TAB PO SCH (08:07)
[2020-04-08] MEDS: Furosemide 40 mg/4 ml IV VIAL IV SCH (08:07)
[2020-04-08] MEDS: Heparin DRIP 25,000 UNITS BAG 25,000 UNITS/500 ML BAG IV SCH (17:09)
[2020-04-08] MEDS: Furosemide 100 mg/10 ml IV VIAL IV SCH (17:10)
[2020-04-08] MEDS: Heparin 5000 UNITS/ML 1 mL VIAL IV SCH (21:10)
[2020-04-09] MEDS ORDERED: Iodixanol (CONTRAST) 320 MG/ML 100 ML SDV IV ONE (05:35)
[2020-04-09] MEDS: Pantoprazole VIAL 40 MG VIAL IV SCH ×2 (05:57→16:59)
[2020-04-09 07:03] LABS: INR 1.62 (0.82-1.09)
[2020-04-09 07:04] LABS: Hematocrit 21 % (42-52); Hemoglobin 6.9 g/dL (14.0-18.0)
[2020-04-09 07:11] LABS: Calcium 9.1 mg/dL (8.6-10.3); Magnesium 1.8 mg/dL (1.9-2.7)
[2020-04-09 07:12] LABS: Potassium 5.1 mmol/L (3.5-5.0)
[2020-04-09 07:17] LABS: BUN/Creatinine Ratio 29.9 (8-20); EGFR African American 52.1 (>60); EGFR Non-African American 43.1 (>60)
[2020-04-09] MEDS ORDERED: Magnesium Sulfate 2 gm BAG 2 GM/50 ML BAG IVPB ONE (07:42)
[2020-04-09] MEDS: Multivitamins/Minerals TAB PO SCH (08:21)
[2020-04-09] MEDS ORDERED: Iron Sucrose 200 MG in NS 0.9% 100 ml BAG 100 ML IVPB ONE (09:00)
[2020-04-09] MEDS: Furosemide 100 mg/10 ml IV VIAL IV SCH ×2 (09:35→16:58)
[2020-04-09] MEDS: Heparin DRIP 25,000 UNITS BAG 25,000 UNITS/500 ML BAG IV SCH (11:44)
[2020-04-09 21:37] LABS: Hematocrit 24 % (42-52); Hemoglobin 7.8 g/dL (14.0-18.0)
[2020-04-10 06:31] LABS: INR 1.91 (0.82-1.09)
[2020-04-10 06:40] LABS: BUN/Creatinine Ratio 32.2 (8-20); EGFR African American 55.3 (>60); EGFR Non-African American 45.7 (>60); Potassium 4.7 mmol/L (3.5-5.0)
[2020-04-10] MEDS: Pantoprazole VIAL 40 MG VIAL IV SCH ×2 (07:24→16:13)
[2020-04-10] MEDS: Furosemide 100 mg/10 ml IV VIAL IV SCH ×2 (07:24→17:25)
[2020-04-10] MEDS: Multivitamins/Minerals TAB PO SCH (07:24)
[2020-04-10] MEDS: Heparin DRIP 25,000 UNITS BAG 25,000 UNITS/500 ML BAG IV SCH ×2 (08:09→18:15)
[2020-04-10] MEDS ORDERED: Iron Sucrose 200 MG in NS 0.9% 100 ml BAG 100 ML IVPB ONE (13:30)
[2020-04-10 20:37] LABS: ABS Basophils 0.1 10^3/ul (0-0.2); ABS Eosinophils 0.1 10^3/ul (0-0.6); ABS Lymphocytes 0.2 10^3/ul (1.0-4.8); ABS Monocytes 0.9 10^3/ul (0-0.8); ABS Neutrophils 5.3 10^3/ul (1.5-7.7); Eosinophil % 1.6 %; Hematocrit 24 % (42-52); Hemoglobin 7.9 g/dL (14.0-18.0); Lymphocyte % 3.7 %; Mean Corpuscular HGB Conc 33 g/dL (31-36); Mean Corpuscular Hemoglobin 29 pg (27-31); Mean Corpuscular Volume 87 fL (80-94); Mean Platelet Volume 9.2 fL (7.4-10.4); Nucleated Red Blood Cells % 0.2; Platelet Count 125 10^3/uL (150-450); Red Blood Count 2.79 10^6 /uL (4.18-5.48); Red Cell Distribution Width 19 % (10-15); White Blood Count 6.6 10^3/uL (3.5-10.8)
[2020-04-11] MEDS: Pantoprazole VIAL 40 MG VIAL IV SCH ×2 (05:18→16:38)
[2020-04-11 06:14] LABS: Hematocrit 22 % (42-52); Hemoglobin 7.2 g/dL (14.0-18.0); Mean Platelet Volume 8.7 fL (7.4-10.4); Platelet Count 127 10^3/uL (150-450)
[2020-04-11 06:24] LABS: Activated Partial Thrombo Time 56.1 seconds (26.0-38.0); INR 2.06 (0.82-1.09)
[2020-04-11 06:30] LABS: BUN/Creatinine Ratio 31.4 (8-20); Calcium 8.7 mg/dL (8.6-10.3); EGFR African American 47.9 (>60); EGFR Non-African American 39.5 (>60); Potassium 4.7 mmol/L (3.5-5.0)
[2020-04-11] MEDS: Heparin 5000 UNITS/ML 1 mL VIAL IV SCH ×2 (06:49→14:28)
[2020-04-11] MEDS ORDERED: Iron Sucrose 200 MG in NS 0.9% 100 ml BAG 100 ML IVPB ONE (09:02)
[2020-04-11] MEDS: Multivitamins/Minerals TAB PO SCH (09:19)
[2020-04-11] MEDS: Furosemide 100 mg/10 ml IV VIAL IV SCH (09:20)
[2020-04-11] MEDS ORDERED: Furosemide 100 mg/10 ml IV VIAL IV SCH (14:00)
[2020-04-11 23:02] LABS: Hematocrit 25 % (42-52)
[2020-04-12] MEDS: Pantoprazole VIAL 40 MG VIAL IV SCH ×2 (05:37→16:56)
[2020-04-12 07:03] LABS: ABS Basophils 0.1 10^3/ul (0-0.2); ABS Eosinophils 0.1 10^3/ul (0-0.6); ABS Lymphocytes 0.3 10^3/ul (1.0-4.8); ABS Monocytes 0.7 10^3/ul (0-0.8); ABS Neutrophils 4.8 10^3/ul (1.5-7.7); Hematocrit 24 % (42-52); Hemoglobin 8.2 g/dL (14.0-18.0); Lymphocyte % 5.7 %; Mean Corpuscular HGB Conc 34 g/dL (31-36); Mean Corpuscular Hemoglobin 30 pg (27-31); Mean Corpuscular Volume 88 fL (80-94); Mean Platelet Volume 8.8 fL (7.4-10.4); Platelet Count 132 10^3/uL (150-450); Red Blood Count 2.74 10^6 /uL (4.18-5.48); Red Cell Distribution Width 18 % (10-15); White Blood Count 6.1 10^3/uL (3.5-10.8)
[2020-04-12 07:11] LABS: INR 1.73 (0.82-1.09)
[2020-04-12 07:13] LABS: Calcium 8.9 mg/dL (8.6-10.3); EGFR African American 42.3 (>60)
[2020-04-12] MEDS: Multivitamins/Minerals TAB PO SCH (08:06)
[2020-04-12] MEDS ORDERED: Iron Sucrose 200 MG in NS 0.9% 100 ml BAG 100 ML IVPB ONE (09:21)
[2020-04-12 18:26] LABS: INR 1.92 (0.82-1.09)
[2020-04-12] MEDS ORDERED: Heparin DRIP 25,000 UNITS BAG 25,000 UNITS/500 ML BAG IV SCH (18:45)
[2020-04-12] MEDS ORDERED: Heparin 5000 UNITS/ML 1 mL VIAL IV SCH (19:00)
[2020-04-12] MEDS: Heparin DRIP 25,000 UNITS BAG 25,000 UNITS/500 ML BAG IV SCH (22:15)
[2020-04-13 04:23] LABS: ABS Eosinophils 0.2 10^3/ul (0-0.6); ABS Lymphocytes 0.3 10^3/ul (1.0-4.8); ABS Monocytes 0.8 10^3/ul (0-0.8); ABS Neutrophils 4.3 10^3/ul (1.5-7.7); Eosinophil % 2.8 %; Hematocrit 24 % (42-52); Hemoglobin 7.6 g/dL (14.0-18.0); Lymphocyte % 5.7 %; Mean Corpuscular HGB Conc 32 g/dL (31-36); Mean Corpuscular Hemoglobin 29 pg (27-31); Mean Corpuscular Volume 90 fL (80-94); Mean Platelet Volume 8.7 fL (7.4-10.4); Nucleated Red Blood Cells % 0.1; Platelet Count 170 10^3/uL (150-450); Red Blood Count 2.61 10^6 /uL (4.18-5.48); Red Cell Distribution Width 18 % (10-15); White Blood Count 5.6 10^3/uL (3.5-10.8)
[2020-04-13 04:41] LABS: Calcium 8.4 mg/dL (8.6-10.3); EGFR African American 36.1 (>60); EGFR Non-African American 29.8 (>60); Potassium 4.9 mmol/L (3.5-5.0)
[2020-04-13] MEDS: Pantoprazole VIAL 40 MG VIAL IV SCH ×2 (05:33→17:38)
[2020-04-13 06:52] LABS: INR 1.85 (0.82-1.09)
[2020-04-13] MEDS: Multivitamins/Minerals TAB PO SCH (08:10)
[2020-04-13] MEDS: Heparin DRIP 25,000 UNITS BAG 25,000 UNITS/500 ML BAG IV SCH (13:10)
[2020-04-13] MEDS: Enoxaparin 100 MG/ML SYR SUBCUT SCH (20:39)
[2020-04-13 20:42] LABS: HIT ELISA 0.164 OD (<0.400)
[2020-04-14] MEDS: Pantoprazole VIAL 40 MG VIAL IV SCH (06:12)
[2020-04-14 07:07] LABS: ABS Basophils 0.1 10^3/ul (0-0.2); ABS Eosinophils 0.2 10^3/ul (0-0.6); ABS Lymphocytes 0.3 10^3/ul (1.0-4.8); ABS Monocytes 0.7 10^3/ul (0-0.8); ABS Neutrophils 4.7 10^3/ul (1.5-7.7); Eosinophil % 2.8 %; Hematocrit 24 % (42-52); Hemoglobin 8.1 g/dL (14.0-18.0); Lymphocyte % 5.1 %; Mean Corpuscular HGB Conc 34 g/dL (31-36); Mean Corpuscular Hemoglobin 30 pg (27-31); Mean Corpuscular Volume 90 fL (80-94); Mean Platelet Volume 8.4 fL (7.4-10.4); Platelet Count 213 10^3/uL (150-450); Red Blood Count 2.68 10^6 /uL (4.18-5.48); Red Cell Distribution Width 18 % (10-15); White Blood Count 5.9 10^3/uL (3.5-10.8)
[2020-04-14 07:26] LABS: BUN/Creatinine Ratio 31.7 (8-20); Calcium 8.7 mg/dL (8.6-10.3); EGFR African American 34.6 (>60); EGFR Non-African American 28.6 (>60)
[2020-04-14] MEDS: Enoxaparin 100 MG/ML SYR SUBCUT SCH (07:30)
[2020-04-14 07:33] LABS: INR 1.75 (0.82-1.09)
[2020-04-14] MEDS: Multivitamins/Minerals TAB PO SCH (08:54)
[2020-04-14 12:30] VITALS: BP 135/42
== END 2020-04-14 16:30 | disposition home or self-care (01) | DRG 811 ==
LOC: ED 12:25 → MEDTELE 15:11
PROVIDERS: ADMIT Internal Medicine; ATTEND Internal Medicine